=== PATIENT | male | born 1945 | race Caucasian/White ===

== ENCOUNTER 2020-10-21 12:02 | Inpatient (IN) | payer OTHER ==
[2020-10-21] MEDS ORDERED: ALBUTEROL SO4 2.5/IPRATROPIUM 0.5 INH SOL 3 ML VIAL.NEB. NEB ONE (12:21)
[2020-10-21] MEDS ORDERED: EPINEPHrine/PF 1 MG/1 ML (1:1,000) AMPULE ONE (12:42)
[2020-10-21] MEDS ORDERED: EPINEPHrine 1:1,000 1 MG/1 ML - 30ML VIAL (INJECTION) SQ ONE (12:44)
[2020-10-21] MEDS ORDERED: DEXAMETHASONE SOD PHOSPHATE 10 MG/1 ML VIAL IVPUSH ONE (12:44)
[2020-10-21] MEDS ORDERED: DEXAMETHASONE SOD PHOSPHATE 10 MG/1 ML VIAL ONE (12:47)
[2020-10-21] MEDS ORDERED: RACEPINEPHRINE IH SOL 2.25% 11.25 MG/0.5 ML VIAL IH ONE (12:54)
[2020-10-21] MEDS ORDERED: RACEPINEPHRINE IH SOL 2.25% 11.25 MG/0.5 ML VIAL NEB ONE (12:58)
[2020-10-21] MEDS: ALBUTEROL SO4 2.5/IPRATROPIUM 0.5 INH SOL 3 ML VIAL.NEB. NEB SCH ×2 (13:02→13:18)
[2020-10-21 13:04] LABS: BASO % 1.3 % (0-2.0); EOS % 2.4 % (0-4.5); HEMATOCRIT 43.5 % (35.4-49); HEMOGLOBIN 14.2 GM/dL (11.7-16.9); LYMPH % 23.3 % (8-40); MCH 25.9 pg (25.7-33.7); MCHC 32.6 g/dl (32.0-35.9); MEAN CELL VOLUME 79.7 fl (80-96); MONO % 8.1 % (3.8-10.2); NEUT % 64.9 % (42.8-82.8); PLATELET COUNT 374 K/MM3 (134-434); RBC 5.46 M/mm3 (4.00-5.60); RDW 13.8 % (11.9-15.9); WHITE BLOOD COUNT 12.3 K/mm3 (4.0-10.0)
[2020-10-21 13:11] LABS: INR 0.99 (0.83-1.09)
[2020-10-21 13:14] LABS: ACTIVATED PTT 34.9 SECONDS (25.2-36.5)
[2020-10-21 13:22] LABS: POTASSIUM 3.6 mmol/L (3.5-5.1)
[2020-10-21 13:24] LABS: CALCIUM 9.9 mg/dL (8.5-10.1)
[2020-10-21 13:25] LABS: ALBUMIN 3.9 g/dl (3.4-5.0); BLOOD UREA NITROGEN 25.7 mg/dL (7-18)
[2020-10-21 13:27] LABS: BILIRUBIN,DIRECT 0.2 mg/dL (0.0-0.2)
[2020-10-21 13:28] LABS: CREATININE 1.2 mg/dL (0.55-1.3)
[2020-10-21 13:29] LABS: BILIRUBIN,TOTAL 0.6 mg/dL (0.2-1)
[2020-10-21 13:30] LABS: TOT PROT 7.4 g/dl (6.4-8.2)
[2020-10-21] MEDS ORDERED: MAGNESIUM SULF 50% (8.12 MEQ/2 ML-1 GM VIAL) IVPB ONE (14:27)
[2020-10-21] MEDS ORDERED: MAGNESIUM SULFATE IN WATER 2 GM/50 ML IVPB IVPB ONE (14:45)
[2020-10-21 14:50] LABS: VENOUS BASE EXCESS 1.3 mmol/L (-2-2); VENOUS O2 SATURATION 98.5 % (70-80); VENOUS PCO2 44.5 mmHg (38-52); VENOUS PH 7.395 (7.310-7.410)
[2020-10-21] MEDS ORDERED: ALBUTEROL SO4 0.083% IH SOL 2.5 MG/3 ML VIAL.NEB. NEB SCH ×2 (16:30)
[2020-10-21] MEDS ORDERED: ALBUTEROL SO4 0.083% IH SOL 2.5 MG/3 ML VIAL.NEB. NEB ONE (16:39)
[2020-10-21] MEDS: ALBUTEROL SO4 0.083% IH SOL 2.5 MG/3 ML VIAL.NEB. NEB PRN ×3 (16:50→17:21)
[2020-10-21 17:18] LABS: EPI CELLS 13 /uL (0-25.1); HYALINE CASTS 1 /uL (0-3.1); PH,URINE 7.5 (5.0-8.0); URINE APPEARANCE CLEAR; URINE BACTERIA 57 /uL (0-1359); URINE BILIRUBIN NEGATIVE (NEGATIVE); URINE COLOR YELLOW; URINE GLUCOSE (UA) TRACE (NEGATIVE); URINE KETONE NEGATIVE (NEGATIVE); URINE LEUK ESTERASE NEGATIVE (NEGATIVE); URINE NITRITE NEGATIVE (NEGATIVE); URINE PROTEIN 3+ (NEGATIVE); URINE RBC 10 /uL (0-23.9); URINE UROBILINOGEN 0.2 mg/dL (0.2-1.0); URINE WBC 26 /uL (0-25.8)
[2020-10-21] MEDS ORDERED: SODIUM CHLORIDE 0.45%/POT 20 MEQ/1,000 ML INFUS.BAG IV SCH (17:45)
[2020-10-21] MEDS ORDERED: LACTATED RINGERS SOLUTION 1000 ML INFUS.BAG IV STA (18:22)
[2020-10-21] MEDS ORDERED: ATENOLOL 50 MG TABLET (FP) PO ONE (18:25)
[2020-10-21] MEDS ORDERED: ALBUTEROL SO4 HFA INHALER IH PRN (20:10)
[2020-10-21] MEDS ORDERED: HEPARIN NA (PORCINE) 5,000 UNITS/ML 1ML VIAL SQ SCH (22:00)
[2020-10-21] MEDS ORDERED: BUDESONIDE/FORMETEROL FUMARATE 160/4.5 mcg INHALER IH SCH (22:00)
[2020-10-21] MEDS: INSULIN (LEVEMIR) 100 UNITS/ML UNITS SQ SCH (22:33)
[2020-10-21] MEDS: CHLORHEXIDINE GLUCONATE 4% CLEANSER FOR DECOLONIZATION TP SCH (22:33)
[2020-10-21] MEDS: INSULIN SLIDING SCALE (NOVOLOG) 1 VIAL SQ SCH (22:33)
[2020-10-21] MEDS: MUPIROCIN 2% TOPICAL OINTMENT FOR DECOLONIZATION NS SCH (22:35)
[2020-10-21] MEDS ORDERED: hydrALAZINE HCL 20 MG/ML VIAL IVPUSH ONE (23:53)
[2020-10-22] MEDS ORDERED: LABETALOL HCL 5 MG/1 ML (100MG/20 ML VIAL) IVPUSH ONE ×2 (00:59→05:36)
[2020-10-22] MEDS ORDERED: hydrALAZINE HCL 25 MG TABLET (FP) PO ONE (03:33)
[2020-10-22 03:40] LABS: ALLENS TEST POSITIVE; ARTERIAL BLD GAS O2 SATURATION 98.7 mmHg (95-98); ARTERIAL BLOOD GAS PO2 137.4 mmHg (80-100); ARTERIAL BLOOD GAS pH 7.397 (7.350-7.450)
[2020-10-22] MEDS ORDERED: LORazepam 2 MG/ML SDV VIAL ONE (04:39)
[2020-10-22] MEDS ORDERED: HALOPERIDOL LACTATE 5 MG/ML ONE ×2 (04:40→06:06)
[2020-10-22] MEDS ORDERED: LORazepam 2 MG/ML SDV VIAL IVPUSH PRN (05:16)
[2020-10-22] MEDS ORDERED: LORazepam 2 MG/ML SDV VIAL IVPUSH ONE (06:12)
[2020-10-22] MEDS ORDERED: RACEPINEPHRINE IH SOL 2.25% 11.25 MG/0.5 ML VIAL NEB ONE (06:27)
[2020-10-22] MEDS ORDERED: EPINEPHrine 1:1,000 1 MG/1 ML - 30ML VIAL (INJECTION) SQ ONE (06:30)
[2020-10-22] MEDS ORDERED: RACEPINEPHRINE IH SOL 2.25% 11.25 MG/0.5 ML VIAL IH ONE (06:30)
[2020-10-22] MEDS ORDERED: HALOPERIDOL LACTATE 5 MG/ML IM ONE (06:32)
[2020-10-22] MEDS ORDERED: metFORMIN HCL 500 MG TABLET (FP) PO SCH (07:00)
[2020-10-22] MEDS ORDERED: SUCCINYLCHOLINE CHLORIDE 200 MG/10 ML VIAL IVPUSH ONE (07:15)
[2020-10-22] MEDS ORDERED: ROCURONIUM BROMIDE 50 MG/5 ML VIAL IV ONE (07:15)
[2020-10-22] MEDS ORDERED: RAPID SEQUENCE INTUBATION KIT NR ONE (07:18)
[2020-10-22] MEDS: INSULIN SLIDING SCALE (NOVOLOG) 1 VIAL SQ SCH ×3 (07:21→18:10)
[2020-10-22] MEDS ORDERED: DEXTROSE 50%-WATER 25 GM/50 ML DISP.SYRIN ONE (07:34)
[2020-10-22] MEDS: PROPOFOL 1,000,000 MCG/100 ML VIAL IVPUSH SCH ×2 (07:40→11:23)
[2020-10-22 07:54] LABS: BASO % 0.4 % (0-2.0); HEMATOCRIT 42.1 % (35.4-49); HEMOGLOBIN 13.5 GM/dL (11.7-16.9); MCH 25.9 pg (25.7-33.7); MCHC 32.2 g/dl (32.0-35.9); MEAN CELL VOLUME 80.4 fl (80-96); MEAN PLT VOLUME 9.7 fl (7.5-11.1); MONO % 9.6 % (3.8-10.2); PLATELET COUNT 331 K/MM3 (134-434); RBC 5.23 M/mm3 (4.00-5.60); RDW 13.8 % (11.9-15.9); WHITE BLOOD COUNT 12.6 K/mm3 (4.0-10.0)
[2020-10-22] MEDS ORDERED: FENTANYL IVPB 500 MCG/100 ML BAG IVPB ONE (08:04)
[2020-10-22 08:23] LABS: POTASSIUM 3.8 mmol/L (3.5-5.1)
[2020-10-22 08:27] LABS: ALBUMIN 3.7 g/dl (3.4-5.0); BLOOD UREA NITROGEN 30.2 mg/dL (7-18); CALCIUM 9.5 mg/dL (8.5-10.1); MAGNESIUM 2.3 mg/dL (1.8-2.4)
[2020-10-22] MEDS: FENTANYL D5W IVPB 1,000 MCG/200 ML BAG IVPB SCH (08:27)
[2020-10-22 08:30] LABS: CREATININE 1.3 mg/dL (0.55-1.3)
[2020-10-22] MEDS ORDERED: TAMSULOSIN HCL 0.4 MG CAP PO SCH (08:30)
[2020-10-22 08:31] LABS: PHOSPHOROUS 4.2 mg/dL (2.5-4.9)
[2020-10-22 08:32] LABS: BILIRUBIN,TOTAL 0.4 mg/dL (0.2-1); TOT PROT 7.1 g/dl (6.4-8.2)
[2020-10-22] MEDS: DEXAMETHASONE SOD PHOSPHATE 4 MG/1 ML VIAL IVPUSH SCH ×3 (09:25→21:12)
[2020-10-22] MEDS: LACTATED RINGERS SOLUTION 1,000 ML/1,000 ML INFUS.BAG IV SCH (09:25)
[2020-10-22] MEDS: MUPIROCIN 2% TOPICAL OINTMENT FOR DECOLONIZATION NS SCH ×2 (09:30→21:12)
[2020-10-22] MEDS: FAMOTIDINE 20 MG/50 ML IVPB 20 MG/50 ML MG IVPB SCH (09:30)
[2020-10-22 09:56] LABS: ARTERIAL BLD GAS O2 SATURATION 99.7 mmHg (95-98); ARTERIAL BLOOD GAS BASE EXCESS -0.6 mmol/L (-2-2); ARTERIAL BLOOD GAS PO2 342.2 mmHg (80-100); ARTERIAL BLOOD GAS pH 7.331 (7.350-7.450)
[2020-10-22 09:57] LABS: ALLENS TEST POSITIVE; VENT MODE A/C; VENT RATE 14
[2020-10-22] MEDS ORDERED: ATENOLOL 50 MG TABLET (FP) PO SCH (10:00)
[2020-10-22] MEDS ORDERED: DEXAMETHASONE SOD PHOSPHATE 4 MG/1 ML VIAL IVPUSH SCH (10:00)
[2020-10-22] MEDS ORDERED: ALBUTEROL SO4 2.5/IPRATROPIUM 0.5 INH SOL 3 ML VIAL.NEB. NEB PRN (10:01)
[2020-10-22] MEDS: HEPARIN NA (PORCINE) 5,000 UNITS/ML 1ML VIAL SQ SCH ×2 (15:00→21:12)
[2020-10-22] MEDS ORDERED: DEXTROSE 50%-WATER - 25 GM/50 ML VIAL IVPUSH ONE (15:34)
[2020-10-22 18:10] LABS: EPI CELLS >36 /uL (0-25.1); HYALINE CASTS 26 /uL (0-3.1); URINE APPEARANCE TURBID; URINE BACTERIA 22 /uL (0-1359); URINE BILIRUBIN NEGATIVE (NEGATIVE); URINE COLOR RED; URINE GLUCOSE (UA) TRACE (NEGATIVE); URINE KETONE 1+ (NEGATIVE); URINE LEUK ESTERASE 2+ (NEGATIVE); URINE NITRITE NEGATIVE (NEGATIVE); URINE PROTEIN 3+ (NEGATIVE); URINE RBC 21266 /uL (0-23.9); URINE UROBILINOGEN 0.2 mg/dL (0.2-1.0); URINE WBC 289 /uL (0-25.8)
[2020-10-22] MEDS ORDERED: FENTANYL NS IVPB 500 MCG/100 ML BAG IVPB ONE (18:55)
[2020-10-22] MEDS ORDERED: PT OWN MED DRAWER 7, Y5N ONE (20:30)
[2020-10-22] MEDS: CHLORHEXIDINE GLUCONATE 4% CLEANSER FOR DECOLONIZATION TP SCH (22:40)
[2020-10-23] MEDS: INSULIN (LEVEMIR) 100 UNITS/ML UNITS SQ SCH ×2 (00:47→23:20)
[2020-10-23] MEDS: INSULIN SLIDING SCALE (NOVOLOG) 1 VIAL SQ SCH ×5 (00:47→23:20)
[2020-10-23] MEDS ORDERED: FENTANYL IVPB 500 MCG/100 ML BAG IVPB ONE (01:08)
[2020-10-23] MEDS ORDERED: PROPOFOL 1,000,000 MCG/100 ML VIAL ONE (01:08)
[2020-10-23] MEDS: DEXAMETHASONE SOD PHOSPHATE 4 MG/1 ML VIAL IVPUSH SCH ×4 (03:09→23:19)
[2020-10-23] MEDS: HEPARIN NA (PORCINE) 5,000 UNITS/ML 1ML VIAL SQ SCH ×3 (06:00→23:19)
[2020-10-23 07:24] LABS: HEMATOCRIT 34.8 % (35.4-49); HEMOGLOBIN 11.5 GM/dL (11.7-16.9); MCH 26.4 pg (25.7-33.7); MCHC 33.1 g/dl (32.0-35.9); MEAN CELL VOLUME 79.7 fl (80-96); MEAN PLT VOLUME 9.4 fl (7.5-11.1); PLATELET COUNT 268 K/MM3 (134-434); RBC 4.36 M/mm3 (4.00-5.60); RDW 13.7 % (11.9-15.9); WHITE BLOOD COUNT 8.3 K/mm3 (4.0-10.0)
[2020-10-23 07:44] LABS: ALBUMIN 2.7 g/dl (3.4-5.0); CALCIUM 8.2 mg/dL (8.5-10.1)
[2020-10-23 07:45] LABS: BLOOD UREA NITROGEN 37.2 mg/dL (7-18); MAGNESIUM 2.3 mg/dL (1.8-2.4)
[2020-10-23 07:48] LABS: CREATININE 1.3 mg/dL (0.55-1.3); PHOSPHOROUS 5.1 mg/dL (2.5-4.9)
[2020-10-23 07:49] LABS: BILIRUBIN,TOTAL 0.6 mg/dL (0.2-1); TOT PROT 5.1 g/dl (6.4-8.2)
[2020-10-23] MEDS: LACTATED RINGERS SOLUTION 1,000 ML/1,000 ML INFUS.BAG IV SCH (09:56)
[2020-10-23] MEDS: MUPIROCIN 2% TOPICAL OINTMENT FOR DECOLONIZATION NS SCH ×2 (09:57→22:36)
[2020-10-23] MEDS: FAMOTIDINE 20 MG/50 ML IVPB 20 MG/50 ML MG IVPB SCH (09:57)
[2020-10-23] MEDS: FENTANYL D5W IVPB 1,000 MCG/200 ML BAG IVPB SCH ×3 (10:00→18:01)
[2020-10-23 12:40] LABS: POTASSIUM 3.6 mmol/L (3.5-5.1)
[2020-10-23] MEDS: PROPOFOL 1,000,000 MCG/100 ML VIAL IVPUSH SCH ×2 (13:06→18:01)
[2020-10-23] MEDS ORDERED: FENTANYL NS IVPB 500 MCG/100 ML BAG IVPB ONE (17:55)
[2020-10-23] MEDS: CHLORHEXIDINE GLUCONATE 4% CLEANSER FOR DECOLONIZATION TP SCH (22:36)
[2020-10-24] MEDS ORDERED: FENTANYL NS IVPB 500 MCG/100 ML BAG IVPB ONE ×3 (00:38→17:31)
[2020-10-24] MEDS ORDERED: PROPOFOL 1,000,000 MCG/100 ML VIAL ONE (00:39)
[2020-10-24] MEDS: DEXAMETHASONE SOD PHOSPHATE 4 MG/1 ML VIAL IVPUSH SCH ×4 (02:08→20:26)
[2020-10-24] MEDS ORDERED: SODIUM CHLORIDE 1,000 ML IV SCH ×2 (04:30→22:34)
[2020-10-24] MEDS: INSULIN SLIDING SCALE (NOVOLOG) 1 VIAL SQ SCH ×4 (06:27→22:08)
[2020-10-24] MEDS: HEPARIN NA (PORCINE) 5,000 UNITS/ML 1ML VIAL SQ SCH ×3 (06:27→21:14)
[2020-10-24 06:48] LABS: HEMOGLOBIN 11.4 GM/dL (11.7-16.9); MCH 25.9 pg (25.7-33.7); MCHC 32.5 g/dl (32.0-35.9); MEAN CELL VOLUME 79.8 fl (80-96); MEAN PLT VOLUME 9.5 fl (7.5-11.1); PLATELET COUNT 258 K/MM3 (134-434); RBC 4.38 M/mm3 (4.00-5.60); RDW 13.9 % (11.9-15.9); WHITE BLOOD COUNT 13.7 K/mm3 (4.0-10.0)
[2020-10-24 07:10] LABS: POTASSIUM 3.8 mmol/L (3.5-5.1)
[2020-10-24 07:14] LABS: BLOOD UREA NITROGEN 38.5 mg/dL (7-18); CALCIUM 8.3 mg/dL (8.5-10.1); MAGNESIUM 2.6 mg/dL (1.8-2.4)
[2020-10-24 07:17] LABS: CREATININE 1.2 mg/dL (0.55-1.3)
[2020-10-24 07:18] LABS: PHOSPHOROUS 4.8 mg/dL (2.5-4.9)
[2020-10-24] MEDS: PROPOFOL 1,000,000 MCG/100 ML VIAL IVPUSH SCH (08:36)
[2020-10-24] MEDS: FENTANYL D5W IVPB 1,000 MCG/200 ML BAG IVPB SCH (09:13)
[2020-10-24] MEDS: MUPIROCIN 2% TOPICAL OINTMENT FOR DECOLONIZATION NS SCH ×2 (09:13→21:14)
[2020-10-24] MEDS: FAMOTIDINE 20 MG/50 ML IVPB 20 MG/50 ML MG IVPB SCH (09:13)
[2020-10-24] MEDS: CHLORHEXIDINE GLUCONATE 4% CLEANSER FOR DECOLONIZATION TP SCH (21:14)
[2020-10-24] MEDS: INSULIN (LEVEMIR) 100 UNITS/ML UNITS SQ SCH (22:08)
[2020-10-25] MEDS ORDERED: FENTANYL IVPB 500 MCG/100 ML BAG IVPB ONE ×2 (01:33→17:39)
[2020-10-25] MEDS: FENTANYL D5W IVPB 1,000 MCG/200 ML BAG IVPB SCH ×2 (01:39→18:01)
[2020-10-25] MEDS: DEXAMETHASONE SOD PHOSPHATE 4 MG/1 ML VIAL IVPUSH SCH ×4 (02:49→20:26)
[2020-10-25] MEDS: PROPOFOL 1,000,000 MCG/100 ML VIAL IVPUSH SCH ×2 (04:00)
[2020-10-25] MEDS: HEPARIN NA (PORCINE) 5,000 UNITS/ML 1ML VIAL SQ SCH ×3 (05:22→21:30)
[2020-10-25] MEDS: INSULIN SLIDING SCALE (NOVOLOG) 1 VIAL SQ SCH ×4 (06:19→21:31)
[2020-10-25 07:02] LABS: BASO % 0.3 % (0-2.0); HEMOGLOBIN 11.7 GM/dL (11.7-16.9); LYMPH % 5.1 % (8-40); MCH 26.1 pg (25.7-33.7); MCHC 32.5 g/dl (32.0-35.9); MEAN CELL VOLUME 80.2 fl (80-96); MEAN PLT VOLUME 9.6 fl (7.5-11.1); MONO % 9.7 % (3.8-10.2); NEUT % 84.9 % (42.8-82.8); PLATELET COUNT 246 K/MM3 (134-434); RBC 4.49 M/mm3 (4.00-5.60); RDW 13.9 % (11.9-15.9)
[2020-10-25 07:24] LABS: POTASSIUM 3.9 mmol/L (3.5-5.1)
[2020-10-25 07:30] LABS: CALCIUM 7.9 mg/dL (8.5-10.1)
[2020-10-25 07:31] LABS: ALBUMIN 2.2 g/dl (3.4-5.0); MAGNESIUM 2.6 mg/dL (1.8-2.4)
[2020-10-25 07:34] LABS: CREATININE 1.1 mg/dL (0.55-1.3); PHOSPHOROUS 3.2 mg/dL (2.5-4.9)
[2020-10-25 07:35] LABS: BILIRUBIN,TOTAL 0.4 mg/dL (0.2-1); TOT PROT 4.9 g/dl (6.4-8.2)
[2020-10-25] MEDS ORDERED: FENTANYL NS IVPB 500 MCG/100 ML BAG IVPB ONE ×2 (07:43→17:11)
[2020-10-25] MEDS: FAMOTIDINE 20 MG/50 ML IVPB 20 MG/50 ML MG IVPB SCH (09:39)
[2020-10-25] MEDS: MUPIROCIN 2% TOPICAL OINTMENT FOR DECOLONIZATION NS SCH ×2 (10:29→21:30)
[2020-10-25] MEDS ORDERED: DEXAMETHASONE SOD PHOSPHATE 10 MG/1 ML VIAL ONE (11:30)
[2020-10-25] MEDS ORDERED: RACEPINEPHRINE IH SOL 2.25% 11.25 MG/0.5 ML VIAL NEB ONE (11:32)
[2020-10-25] MEDS ORDERED: SUCCINYLCHOLINE CHLORIDE 200 MG/10 ML SYRINGE ONE (11:50)
[2020-10-25] MEDS ORDERED: DEXTROSE 5%-WATER 100 ML IVPB ONE ×3 (14:01→20:20)
[2020-10-25] MEDS ORDERED: PIPERACILLIN/TAZOBACTAM 4.5 GM VIAL IVPB ONE ×3 (14:01→20:20)
[2020-10-25] MEDS: PIPERACILLIN/TAZOB 4.5 GM 4.5 GM in DEXTROSE 5%-WATER 100 ML IVPB SCH ×3 (14:05→20:26)
[2020-10-25] MEDS: AMINO ACIDS/PROTEIN HYDROLYS 30 ML LIQUID.PKT PO SCH (18:02)
[2020-10-25] MEDS: CHLORHEXIDINE GLUCONATE 4% CLEANSER FOR DECOLONIZATION TP SCH (21:30)
[2020-10-25] MEDS: INSULIN (LEVEMIR) 100 UNITS/ML UNITS SQ SCH (21:31)
[2020-10-26] MEDS ORDERED: FENTANYL IVPB 500 MCG/100 ML BAG IVPB ONE ×2 (00:06→15:47)
[2020-10-26] MEDS ORDERED: ENALAPRILAT DIHYDRATE 1.25 MG/1 ML VIAL IVPB ONE ×2 (01:09→06:05)
[2020-10-26] MEDS ORDERED: PIPERACILLIN/TAZOBACTAM 4.5 GM VIAL IVPB ONE ×5 (01:20→20:09)
[2020-10-26] MEDS ORDERED: DEXTROSE 5%-WATER 100 ML IVPB ONE ×4 (01:21→20:09)
[2020-10-26] MEDS: PIPERACILLIN/TAZOB 4.5 GM 4.5 GM in DEXTROSE 5%-WATER 100 ML IVPB SCH ×4 (03:06→20:19)
[2020-10-26] MEDS: DEXAMETHASONE SOD PHOSPHATE 4 MG/1 ML VIAL IVPUSH SCH ×4 (03:10→20:20)
[2020-10-26] MEDS: FENTANYL D5W IVPB 1,000 MCG/200 ML BAG IVPB SCH ×2 (04:00→15:51)
[2020-10-26] MEDS: PROPOFOL 1,000,000 MCG/100 ML VIAL IVPUSH SCH ×2 (04:00→13:28)
[2020-10-26] MEDS: HEPARIN NA (PORCINE) 5,000 UNITS/ML 1ML VIAL SQ SCH ×3 (06:21→21:37)
[2020-10-26] MEDS: INSULIN SLIDING SCALE (NOVOLOG) 1 VIAL SQ SCH ×4 (06:22→22:06)
[2020-10-26] MEDS ORDERED: ACETAMINOPHEN 1000 MG/100 ML VIAL (NON FORMULARY) IVPB ONE (06:44)
[2020-10-26 07:09] LABS: BASO % 0.1 % (0-2.0); EOS % 0.1 % (0-4.5); HEMATOCRIT 37.5 % (35.4-49); HEMOGLOBIN 12.2 GM/dL (11.7-16.9); MCH 26.2 pg (25.7-33.7); MCHC 32.5 g/dl (32.0-35.9); MEAN CELL VOLUME 80.5 fl (80-96); MEAN PLT VOLUME 9.8 fl (7.5-11.1); MONO % 5.3 % (3.8-10.2); NEUT % 87.5 % (42.8-82.8); PLATELET COUNT 245 K/MM3 (134-434); RBC 4.66 M/mm3 (4.00-5.60); RDW 13.9 % (11.9-15.9)
[2020-10-26 07:23] LABS: POTASSIUM 3.9 mmol/L (3.5-5.1)
[2020-10-26 07:27] LABS: CALCIUM 8.4 mg/dL (8.5-10.1)
[2020-10-26 07:28] LABS: ALBUMIN 2.1 g/dl (3.4-5.0); BLOOD UREA NITROGEN 35.3 mg/dL (7-18)
[2020-10-26 07:31] LABS: CREATININE 1.2 mg/dL (0.55-1.3); PHOSPHOROUS 3.7 mg/dL (2.5-4.9)
[2020-10-26 07:33] LABS: BILIRUBIN,TOTAL 0.4 mg/dL (0.2-1); TOT PROT 5.2 g/dl (6.4-8.2)
[2020-10-26] MEDS: MUPIROCIN 2% TOPICAL OINTMENT FOR DECOLONIZATION NS SCH (09:35)
[2020-10-26] MEDS: FAMOTIDINE 20 MG/50 ML IVPB 20 MG/50 ML MG IVPB SCH (09:36)
[2020-10-26] MEDS: AMINO ACIDS/PROTEIN HYDROLYS 30 ML LIQUID.PKT PO SCH ×2 (09:36→17:38)
[2020-10-26 10:04] LABS: ANISOCYTOSIS 0; MACROCYTOSIS 0; PLATELET ESTIMATE NORMAL
[2020-10-26] MEDS ORDERED: DEXTROSE 5%-LACTATED RINGERS 1,000 ML IV SCH (14:30)
[2020-10-26] MEDS: SODIUM CHLORIDE 0.45% 1,000 ML IV SCH (15:15)
[2020-10-26] MEDS ORDERED: ENALAPRILAT DIHYDRATE 2.5 MG/2 ML VIAL IVPB ONE ×2 (16:18→16:22)
[2020-10-26] MEDS: ATENOLOL 50 MG TABLET (FP) PO SCH (17:37)
[2020-10-26] MEDS: TAMSULOSIN HCL 0.4 MG CAP PO SCH (17:38)
[2020-10-26] MEDS: hydrALAZINE HCL 25 MG TABLET (FP) PO SCH ×2 (17:38→21:36)
[2020-10-26] MEDS: CHLORHEXIDINE GLUCONATE 4% CLEANSER FOR DECOLONIZATION TP SCH (22:08)
[2020-10-27] MEDS ORDERED: FENTANYL IVPB 500 MCG/100 ML BAG IVPB ONE ×2 (01:40→21:35)
[2020-10-27] MEDS ORDERED: PIPERACILLIN/TAZOBACTAM 4.5 GM VIAL IVPB ONE ×4 (01:41→21:37)
[2020-10-27] MEDS ORDERED: DEXTROSE 5%-WATER 100 ML IVPB ONE ×4 (01:41→21:37)
[2020-10-27] MEDS: FENTANYL D5W IVPB 1,000 MCG/200 ML BAG IVPB SCH ×2 (01:51→10:13)
[2020-10-27] MEDS: PROPOFOL 1,000,000 MCG/100 ML VIAL IVPUSH SCH ×3 (01:51→21:50)
[2020-10-27] MEDS: DEXAMETHASONE SOD PHOSPHATE 4 MG/1 ML VIAL IVPUSH SCH ×4 (02:25→21:46)
[2020-10-27] MEDS: PIPERACILLIN/TAZOB 4.5 GM 4.5 GM in DEXTROSE 5%-WATER 100 ML IVPB SCH ×4 (02:45→21:47)
[2020-10-27] MEDS: hydrALAZINE HCL 25 MG TABLET (FP) PO SCH ×3 (05:28→21:49)
[2020-10-27] MEDS: HEPARIN NA (PORCINE) 5,000 UNITS/ML 1ML VIAL SQ SCH ×3 (05:28→21:49)
[2020-10-27] MEDS: INSULIN SLIDING SCALE (NOVOLOG) 1 VIAL SQ SCH ×4 (06:27→22:01)
[2020-10-27] MEDS: TAMSULOSIN HCL 0.4 MG CAP PO SCH (09:24)
[2020-10-27] MEDS: AMINO ACIDS/PROTEIN HYDROLYS 30 ML LIQUID.PKT PO SCH ×2 (09:44→16:41)
[2020-10-27] MEDS: FAMOTIDINE 20 MG/50 ML IVPB 20 MG/50 ML MG IVPB SCH ×2 (09:47→21:50)
[2020-10-27] MEDS: ATENOLOL 50 MG TABLET (FP) PO SCH (09:48)
[2020-10-27] MEDS ORDERED: FENTANYL NS IVPB 500 MCG/100 ML BAG IVPB ONE (10:12)
[2020-10-27 11:29] LABS: BASO % 0.5 % (0-2.0); HEMATOCRIT 38.9 % (35.4-49); HEMOGLOBIN 12.3 GM/dL (11.7-16.9); LYMPH % 8.3 % (8-40); MCH 25.7 pg (25.7-33.7); MCHC 31.6 g/dl (32.0-35.9); MEAN CELL VOLUME 81.3 fl (80-96); MEAN PLT VOLUME 9.5 fl (7.5-11.1); MONO % 6.7 % (3.8-10.2); NEUT % 84.5 % (42.8-82.8); PLATELET COUNT 252 K/MM3 (134-434); RBC 4.79 M/mm3 (4.00-5.60); RDW 13.8 % (11.9-15.9); WHITE BLOOD COUNT 13.7 K/mm3 (4.0-10.0)
[2020-10-27 11:44] LABS: POTASSIUM 3.8 mmol/L (3.5-5.1)
[2020-10-27 11:50] LABS: BLOOD UREA NITROGEN 39.6 mg/dL (7-18); CALCIUM 8.1 mg/dL (8.5-10.1)
[2020-10-27 11:51] LABS: MAGNESIUM 2.6 mg/dL (1.8-2.4)
[2020-10-27 11:53] LABS: CREATININE 1.2 mg/dL (0.55-1.3)
[2020-10-27 11:54] LABS: PHOSPHOROUS 4.2 mg/dL (2.5-4.9)
[2020-10-27 11:55] LABS: TOT PROT 5.2 g/dl (6.4-8.2)
[2020-10-27 12:01] LABS: BILIRUBIN,TOTAL 0.5 mg/dL (0.2-1)
[2020-10-27] MEDS: SODIUM CHLORIDE 0.45% 1,000 ML IV SCH (16:37)
[2020-10-27] MEDS: CHLORHEXIDINE GLUCONATE 4% CLEANSER FOR DECOLONIZATION TP SCH (21:49)
[2020-10-27] MEDS: INSULIN (LEVEMIR) 100 UNITS/ML UNITS SQ SCH (22:02)
[2020-10-28] MEDS ORDERED: PIPERACILLIN/TAZOBACTAM 4.5 GM VIAL IVPB ONE ×4 (01:01→21:58)
[2020-10-28] MEDS ORDERED: DEXTROSE 5%-WATER 100 ML IVPB ONE ×4 (01:02→21:58)
[2020-10-28] MEDS: DEXAMETHASONE SOD PHOSPHATE 4 MG/1 ML VIAL IVPUSH SCH ×4 (02:00→21:59)
[2020-10-28] MEDS: PIPERACILLIN/TAZOB 4.5 GM 4.5 GM in DEXTROSE 5%-WATER 100 ML IVPB SCH ×4 (02:00→21:59)
[2020-10-28] MEDS: PROPOFOL 1,000,000 MCG/100 ML VIAL IVPUSH SCH ×3 (02:00→22:00)
[2020-10-28] MEDS ORDERED: FENTANYL IVPB 500 MCG/100 ML BAG IVPB ONE (04:57)
[2020-10-28] MEDS: hydrALAZINE HCL 25 MG TABLET (FP) PO SCH (05:04)
[2020-10-28] MEDS: HEPARIN NA (PORCINE) 5,000 UNITS/ML 1ML VIAL SQ SCH ×3 (05:04→21:59)
[2020-10-28] MEDS: INSULIN SLIDING SCALE (NOVOLOG) 1 VIAL SQ SCH ×4 (06:38→22:15)
[2020-10-28 07:36] LABS: BASO % 0.3 % (0-2.0); HEMATOCRIT 38.3 % (35.4-49); HEMOGLOBIN 12.3 GM/dL (11.7-16.9); LYMPH % 5.2 % (8-40); MCH 25.8 pg (25.7-33.7); MEAN CELL VOLUME 80.8 fl (80-96); MEAN PLT VOLUME 9.5 fl (7.5-11.1); MONO % 5.4 % (3.8-10.2); NEUT % 89.1 % (42.8-82.8); PLATELET COUNT 255 K/MM3 (134-434); RBC 4.74 M/mm3 (4.00-5.60); RDW 14.3 % (11.9-15.9); WHITE BLOOD COUNT 11.5 K/mm3 (4.0-10.0)
[2020-10-28 08:04] LABS: ALBUMIN 1.9 g/dl (3.4-5.0); BLOOD UREA NITROGEN 49.7 mg/dL (7-18); CALCIUM 7.7 mg/dL (8.5-10.1)
[2020-10-28 08:05] LABS: MAGNESIUM 2.5 mg/dL (1.8-2.4)
[2020-10-28 08:07] LABS: CREATININE 1.2 mg/dL (0.55-1.3); PHOSPHOROUS 3.8 mg/dL (2.5-4.9)
[2020-10-28 08:09] LABS: BILIRUBIN,TOTAL 0.4 mg/dL (0.2-1); TOT PROT 4.9 g/dl (6.4-8.2)
[2020-10-28] MEDS ORDERED: PT OWN MED DRAWER 7, Y5N ONE (09:33)
[2020-10-28] MEDS: TAMSULOSIN HCL 0.4 MG CAP PO SCH (10:08)
[2020-10-28] MEDS: AMINO ACIDS/PROTEIN HYDROLYS 30 ML LIQUID.PKT PO SCH ×2 (10:08→17:57)
[2020-10-28] MEDS: ATENOLOL 50 MG TABLET (FP) PO SCH (10:09)
[2020-10-28] MEDS: FAMOTIDINE 20 MG/50 ML IVPB 20 MG/50 ML MG IVPB SCH ×2 (10:09→22:00)
[2020-10-28] MEDS ORDERED: DEXTROSE 5%-WATER - 1,000 ML IV SCH (11:00)
[2020-10-28 11:16] LABS: ANISOCYTOSIS 0; MACROCYTOSIS 0; PLATELET ESTIMATE NORMAL
[2020-10-28] MEDS: hydrALAZINE HCL 50 MG TABLET (FP) PO SCH ×2 (15:35→21:59)
[2020-10-28] MEDS ORDERED: fentaNYL CITRATE 250 MCG/5 ML VIAL ONE ×2 (17:23→23:36)
[2020-10-28] MEDS: CHLORHEXIDINE GLUCONATE 4% CLEANSER FOR DECOLONIZATION TP SCH (22:00)
[2020-10-28] MEDS: INSULIN (LEVEMIR) 100 UNITS/ML UNITS SQ SCH (22:34)
[2020-10-28] MEDS: FENTANYL D5W IVPB 1,000 MCG/200 ML BAG IVPB SCH ×2 (23:37)
[2020-10-29] MEDS: PIPERACILLIN/TAZOB 4.5 GM 4.5 GM in DEXTROSE 5%-WATER 100 ML IVPB SCH ×4 (02:26→21:36)
[2020-10-29] MEDS: DEXAMETHASONE SOD PHOSPHATE 4 MG/1 ML VIAL IVPUSH SCH ×4 (02:26→21:36)
[2020-10-29] MEDS ORDERED: PIPERACILLIN/TAZOBACTAM 4.5 GM VIAL IVPB ONE ×4 (02:26→21:34)
[2020-10-29] MEDS: PROPOFOL 1,000,000 MCG/100 ML VIAL IVPUSH SCH ×4 (02:26→19:30)
[2020-10-29] MEDS ORDERED: DEXTROSE 5%-WATER 100 ML IVPB ONE ×4 (02:26→21:35)
[2020-10-29] MEDS: hydrALAZINE HCL 50 MG TABLET (FP) PO SCH ×3 (05:00→21:37)
[2020-10-29] MEDS: HEPARIN NA (PORCINE) 5,000 UNITS/ML 1ML VIAL SQ SCH (06:09)
[2020-10-29] MEDS: INSULIN SLIDING SCALE (NOVOLOG) 1 VIAL SQ SCH ×4 (06:14→21:34)
[2020-10-29 06:35] LABS: BASO % 0.4 % (0-2.0); EOS % 0.1 % (0-4.5); HEMATOCRIT 37.4 % (35.4-49); LYMPH % 6.8 % (8-40); MCH 25.8 pg (25.7-33.7); MEAN CELL VOLUME 80.5 fl (80-96); MEAN PLT VOLUME 9.1 fl (7.5-11.1); MONO % 6.6 % (3.8-10.2); NEUT % 86.1 % (42.8-82.8); PLATELET COUNT 231 K/MM3 (134-434); RBC 4.65 M/mm3 (4.00-5.60); RDW 14.2 % (11.9-15.9); WHITE BLOOD COUNT 12.5 K/mm3 (4.0-10.0)
[2020-10-29 06:56] LABS: CALCIUM 8.1 mg/dL (8.5-10.1)
[2020-10-29 06:57] LABS: ALBUMIN 1.8 g/dl (3.4-5.0); BLOOD UREA NITROGEN 44.6 mg/dL (7-18); MAGNESIUM 2.8 mg/dL (1.8-2.4)
[2020-10-29 06:59] LABS: CREATININE 1.2 mg/dL (0.55-1.3)
[2020-10-29 07:00] LABS: PHOSPHOROUS 3.9 mg/dL (2.5-4.9)
[2020-10-29 07:01] LABS: BILIRUBIN,TOTAL 0.5 mg/dL (0.2-1); TOT PROT 4.7 g/dl (6.4-8.2)
[2020-10-29] MEDS: TAMSULOSIN HCL 0.4 MG CAP PO SCH (08:00)
[2020-10-29] MEDS: AMINO ACIDS/PROTEIN HYDROLYS 30 ML LIQUID.PKT PO SCH ×2 (08:00→16:47)
[2020-10-29] MEDS: FENTANYL IVPB 500 MCG/100 ML BAG IVPB SCH ×2 (08:30→20:00)
[2020-10-29] MEDS ORDERED: fentaNYL CITRATE 250 MCG/5 ML VIAL ONE (08:38)
[2020-10-29] MEDS: FAMOTIDINE 20 MG/50 ML IVPB 20 MG/50 ML MG IVPB SCH ×2 (09:46→21:37)
[2020-10-29] MEDS: ATENOLOL 50 MG TABLET (FP) PO SCH (09:46)
[2020-10-29] MEDS: INSULIN (LEVEMIR) 100 UNITS/ML UNITS SQ SCH (21:34)
[2020-10-29] MEDS: CHLORHEXIDINE GLUCONATE 4% CLEANSER FOR DECOLONIZATION TP SCH (21:37)
[2020-10-30] MEDS ORDERED: FENTANYL IVPB 500 MCG/100 ML BAG IVPB ONE (00:55)
[2020-10-30] MEDS: FENTANYL IVPB 500 MCG/100 ML BAG IVPB SCH ×4 (01:45→21:24)
[2020-10-30] MEDS: PROPOFOL 1,000,000 MCG/100 ML VIAL IVPUSH SCH ×5 (01:45→21:24)
[2020-10-30] MEDS: DEXAMETHASONE SOD PHOSPHATE 4 MG/1 ML VIAL IVPUSH SCH ×4 (02:01→21:23)
[2020-10-30] MEDS: PIPERACILLIN/TAZOB 4.5 GM 4.5 GM in DEXTROSE 5%-WATER 100 ML IVPB SCH ×4 (02:02→21:23)
[2020-10-30] MEDS: hydrALAZINE HCL 50 MG TABLET (FP) PO SCH ×3 (06:09→21:24)
[2020-10-30] MEDS ORDERED: DEXTROSE 5%-WATER 100 ML IVPB ONE ×4 (06:24→20:53)
[2020-10-30] MEDS ORDERED: PIPERACILLIN/TAZOBACTAM 4.5 GM VIAL IVPB ONE ×4 (06:24→20:53)
[2020-10-30] MEDS: INSULIN SLIDING SCALE (NOVOLOG) 1 VIAL SQ SCH ×4 (06:26→21:34)
[2020-10-30 07:20] LABS: BASO % 0.3 % (0-2.0); EOS % 0.1 % (0-4.5); HEMATOCRIT 37.8 % (35.4-49); HEMOGLOBIN 11.9 GM/dL (11.7-16.9); LYMPH % 4.7 % (8-40); MCH 25.7 pg (25.7-33.7); MCHC 31.3 g/dl (32.0-35.9); MEAN CELL VOLUME 82.1 fl (80-96); MEAN PLT VOLUME 9.7 fl (7.5-11.1); MONO % 3.4 % (3.8-10.2); NEUT % 91.5 % (42.8-82.8); PLATELET COUNT 224 K/MM3 (134-434); RBC 4.61 M/mm3 (4.00-5.60); RDW 14.4 % (11.9-15.9); WHITE BLOOD COUNT 12.5 K/mm3 (4.0-10.0)
[2020-10-30 07:38] LABS: POTASSIUM 4.4 mmol/L (3.5-5.1)
[2020-10-30 07:44] LABS: CALCIUM 7.6 mg/dL (8.5-10.1)
[2020-10-30 07:45] LABS: ALBUMIN 1.9 g/dl (3.4-5.0); BLOOD UREA NITROGEN 50.2 mg/dL (7-18)
[2020-10-30 07:46] LABS: CREATININE 1.4 mg/dL (0.55-1.3)
[2020-10-30 07:48] LABS: BILIRUBIN,TOTAL 0.9 mg/dL (0.2-1); TOT PROT 4.8 g/dl (6.4-8.2)
[2020-10-30] MEDS ORDERED: FENTANYL NS IVPB 500 MCG/100 ML BAG IVPB ONE (07:52)
[2020-10-30] MEDS ORDERED: MIDAZOLAM 100 MG/100 ML MG IVPB ONE (08:06)
[2020-10-30] MEDS: AMINO ACIDS/PROTEIN HYDROLYS 30 ML LIQUID.PKT PO SCH ×2 (09:20→16:50)
[2020-10-30] MEDS: TAMSULOSIN HCL 0.4 MG CAP PO SCH (09:21)
[2020-10-30] MEDS: ATENOLOL 50 MG TABLET (FP) PO SCH (10:42)
[2020-10-30] MEDS: FAMOTIDINE 20 MG/50 ML IVPB 20 MG/50 ML MG IVPB SCH ×2 (10:42→21:24)
[2020-10-30] MEDS ORDERED: INSULIN (NOVOLOG) ASPART 100 UNITS/ML 10ML VIAL SQ ONE (11:09)
[2020-10-30] MEDS: CHLORHEXIDINE GLUCONATE 4% CLEANSER FOR DECOLONIZATION TP SCH (21:23)
[2020-10-30] MEDS: INSULIN (LEVEMIR) 100 UNITS/ML UNITS SQ SCH (21:33)
[2020-10-31] MEDS ORDERED: PIPERACILLIN/TAZOBACTAM 4.5 GM VIAL IVPB ONE ×4 (01:17→20:16)
[2020-10-31] MEDS ORDERED: RAPID SEQUENCE INTUBATION KIT NR ONE (01:17)
[2020-10-31] MEDS ORDERED: DEXTROSE 5%-WATER 100 ML IVPB ONE ×4 (01:17→20:16)
[2020-10-31] MEDS: PIPERACILLIN/TAZOB 4.5 GM 4.5 GM in DEXTROSE 5%-WATER 100 ML IVPB SCH ×4 (02:00→20:54)
[2020-10-31] MEDS: DEXAMETHASONE SOD PHOSPHATE 4 MG/1 ML VIAL IVPUSH SCH ×4 (02:00→20:54)
[2020-10-31] MEDS ORDERED: fentaNYL CITRATE 250 MCG/5 ML VIAL ONE (06:06)
[2020-10-31] MEDS: hydrALAZINE HCL 50 MG TABLET (FP) PO SCH ×3 (06:14→21:10)
[2020-10-31] MEDS: INSULIN SLIDING SCALE (NOVOLOG) 1 VIAL SQ SCH ×3 (06:15→16:45)
[2020-10-31] MEDS: PROPOFOL 1,000,000 MCG/100 ML VIAL IVPUSH SCH ×3 (06:21→15:01)
[2020-10-31] MEDS: FENTANYL IVPB 500 MCG/100 ML BAG IVPB SCH ×4 (06:22→13:32)
[2020-10-31 06:25] LABS: ARTERIAL BLD GAS O2 SATURATION 97.9 mmHg (95-98); ARTERIAL BLOOD GAS BASE EXCESS -0.6 mmol/L (-2-2); ARTERIAL BLOOD GAS PO2 108.7 mmHg (80-100); ARTERIAL BLOOD GAS pH 7.381 (7.350-7.450)
[2020-10-31 06:26] LABS: ALLENS TEST POSITIVE
[2020-10-31 06:27] LABS: VENT MODE A/C; VENT RATE 12
[2020-10-31] MEDS: TAMSULOSIN HCL 0.4 MG CAP PO SCH (09:00)
[2020-10-31] MEDS: AMINO ACIDS/PROTEIN HYDROLYS 30 ML LIQUID.PKT PO SCH ×2 (09:00→16:48)
[2020-10-31] MEDS: ATENOLOL 50 MG TABLET (FP) PO SCH (10:12)
[2020-10-31] MEDS: FAMOTIDINE 20 MG/50 ML IVPB 20 MG/50 ML MG IVPB SCH ×2 (10:12→21:11)
[2020-10-31 12:36] LABS: BASO % 0.2 % (0-2.0); EOS % 0.1 % (0-4.5); HEMATOCRIT 35.8 % (35.4-49); HEMOGLOBIN 11.5 GM/dL (11.7-16.9); LYMPH % 6.2 % (8-40); MCH 26.5 pg (25.7-33.7); MCHC 32.2 g/dl (32.0-35.9); MEAN CELL VOLUME 82.3 fl (80-96); MONO % 6.6 % (3.8-10.2); NEUT % 86.9 % (42.8-82.8); RBC 4.35 M/mm3 (4.00-5.60); RDW 14.3 % (11.9-15.9); WHITE BLOOD COUNT 13.3 K/mm3 (4.0-10.0)
[2020-10-31 12:54] LABS: POTASSIUM 3.9 mmol/L (3.5-5.1)
[2020-10-31 12:56] LABS: ALBUMIN 1.7 g/dl (3.4-5.0)
[2020-10-31 12:57] LABS: MAGNESIUM 2.9 mg/dL (1.8-2.4)
[2020-10-31 13:00] LABS: CREATININE 1.2 mg/dL (0.55-1.3); PHOSPHOROUS 3.5 mg/dL (2.5-4.9)
[2020-10-31 13:01] LABS: BILIRUBIN,TOTAL 0.8 mg/dL (0.2-1)
[2020-10-31 13:06] LABS: TOT PROT 4.2 g/dl (6.4-8.2)
[2020-10-31 13:12] LABS: CALCIUM 6.4 mg/dL (8.5-10.1)
[2020-10-31] MEDS ORDERED: INSULIN (LEVEMIR) 100 UNITS/ML UNITS SQ ONE (14:32)
[2020-10-31] MEDS: FENTANYL NS IVPB 500 MCG/100 ML BAG IVPB SCH (14:59)
[2020-10-31] MEDS: PROPOFOL 1,000,000 MCG/100 ML VIAL IVPB SCH (16:44)
[2020-10-31 17:55] LABS: ANISOCYTOSIS 1+
[2020-10-31 17:56] LABS: PLATELET ESTIMATE UNABLE TO ENUMERATE
[2020-10-31] MEDS: CHLORHEXIDINE GLUCONATE 4% CLEANSER FOR DECOLONIZATION TP SCH (21:10)
[2020-11-01] MEDS: INSULIN SLIDING SCALE (NOVOLOG) 1 VIAL SQ SCH ×5 (00:07→21:50)
[2020-11-01] MEDS: INSULIN (LEVEMIR) 100 UNITS/ML UNITS SQ SCH ×2 (00:07→21:50)
[2020-11-01] MEDS: DEXAMETHASONE SOD PHOSPHATE 4 MG/1 ML VIAL IVPUSH SCH ×4 (04:17→21:55)
[2020-11-01] MEDS: PIPERACILLIN/TAZOB 4.5 GM 4.5 GM in DEXTROSE 5%-WATER 100 ML IVPB SCH ×4 (04:17→21:55)
[2020-11-01] MEDS: hydrALAZINE HCL 50 MG TABLET (FP) PO SCH ×3 (05:37→21:55)
[2020-11-01 07:25] LABS: HEMATOCRIT 36.7 % (35.4-49); HEMOGLOBIN 11.9 GM/dL (11.7-16.9); MCH 26.5 pg (25.7-33.7); MCHC 32.5 g/dl (32.0-35.9); MEAN CELL VOLUME 81.5 fl (80-96); MEAN PLT VOLUME 9.7 fl (7.5-11.1); PLATELET COUNT 198 K/MM3 (134-434); RBC 4.51 M/mm3 (4.00-5.60); RDW 14.3 % (11.9-15.9); WHITE BLOOD COUNT 15.6 K/mm3 (4.0-10.0)
[2020-11-01 07:45] LABS: POTASSIUM 4.1 mmol/L (3.5-5.1)
[2020-11-01] MEDS: FENTANYL NS IVPB 500 MCG/100 ML BAG IVPB SCH ×4 (07:46→23:30)
[2020-11-01 07:48] LABS: ALBUMIN 1.8 g/dl (3.4-5.0); BLOOD UREA NITROGEN 58.5 mg/dL (7-18)
[2020-11-01 07:49] LABS: MAGNESIUM 3.2 mg/dL (1.8-2.4)
[2020-11-01 07:52] LABS: CREATININE 1.2 mg/dL (0.55-1.3); PHOSPHOROUS 4.2 mg/dL (2.5-4.9)
[2020-11-01 07:53] LABS: BILIRUBIN,TOTAL 0.4 mg/dL (0.2-1); TOT PROT 4.5 g/dl (6.4-8.2)
[2020-11-01] MEDS ORDERED: LACTATED RINGERS SOLUTION 1,000 ML/1,000 ML INFUS.BAG IV SCH (08:30)
[2020-11-01] MEDS ORDERED: DEXTROSE 5%-WATER 100 ML IVPB ONE ×4 (09:43→21:54)
[2020-11-01] MEDS ORDERED: PIPERACILLIN/TAZOBACTAM 4.5 GM VIAL IVPB ONE ×4 (09:43→21:54)
[2020-11-01] MEDS: TAMSULOSIN HCL 0.4 MG CAP PO SCH (09:44)
[2020-11-01] MEDS: AMINO ACIDS/PROTEIN HYDROLYS 30 ML LIQUID.PKT PO SCH ×2 (09:45→16:59)
[2020-11-01] MEDS: ATENOLOL 50 MG TABLET (FP) PO SCH (09:47)
[2020-11-01] MEDS: FAMOTIDINE 20 MG/50 ML IVPB 20 MG/50 ML MG IVPB SCH ×2 (11:16→21:55)
[2020-11-01] MEDS: PROPOFOL 1,000,000 MCG/100 ML VIAL IVPB SCH ×3 (13:16→21:55)
[2020-11-01] MEDS: HEPARIN NA (PORCINE) 5,000 UNITS/ML 1ML VIAL SQ SCH ×2 (14:54→21:55)
[2020-11-01] MEDS: DOXAZOSIN MESYLATE 1 MG TABLET PO SCH (14:55)
[2020-11-01 16:10] LABS: POTASSIUM 4.1 mmol/L (3.5-5.1)
[2020-11-01 16:11] LABS: CALCIUM 8.3 mg/dL (8.5-10.1)
[2020-11-01 16:12] LABS: BLOOD UREA NITROGEN 59.6 mg/dL (7-18)
[2020-11-01 16:15] LABS: CREATININE 1.1 mg/dL (0.55-1.3)
[2020-11-01] MEDS: CHLORHEXIDINE GLUCONATE 4% CLEANSER FOR DECOLONIZATION TP SCH (21:48)
[2020-11-02] MEDS: PROPOFOL 1,000,000 MCG/100 ML VIAL IVPB SCH ×5 (01:00→19:30)
[2020-11-02] MEDS ORDERED: PIPERACILLIN/TAZOBACTAM 4.5 GM VIAL IVPB ONE ×4 (02:58→22:00)
[2020-11-02] MEDS: DEXAMETHASONE SOD PHOSPHATE 4 MG/1 ML VIAL IVPUSH SCH ×4 (02:58→22:02)
[2020-11-02] MEDS ORDERED: DEXTROSE 5%-WATER 100 ML IVPB ONE ×4 (02:58→22:00)
[2020-11-02] MEDS: PIPERACILLIN/TAZOB 4.5 GM 4.5 GM in DEXTROSE 5%-WATER 100 ML IVPB SCH ×4 (02:58→22:03)
[2020-11-02] MEDS: FENTANYL NS IVPB 500 MCG/100 ML BAG IVPB SCH ×4 (03:23→19:30)
[2020-11-02] MEDS: INSULIN SLIDING SCALE (NOVOLOG) 1 VIAL SQ SCH ×4 (06:28→22:03)
[2020-11-02] MEDS: hydrALAZINE HCL 50 MG TABLET (FP) PO SCH ×3 (06:30→22:03)
[2020-11-02] MEDS: HEPARIN NA (PORCINE) 5,000 UNITS/ML 1ML VIAL SQ SCH ×3 (06:30→22:03)
[2020-11-02 08:16] LABS: HEMATOCRIT 33.3 % (35.4-49); HEMOGLOBIN 11.8 GM/dL (11.7-16.9); MCH 29.3 pg (25.7-33.7); MCHC 35.4 g/dl (32.0-35.9); MEAN CELL VOLUME 82.8 fl (80-96); MEAN PLT VOLUME 10.4 fl (7.5-11.1); PLATELET COUNT 181 K/MM3 (134-434); RBC 4.02 M/mm3 (4.00-5.60); RDW 14.6 % (11.9-15.9); WHITE BLOOD COUNT 21.2 K/mm3 (4.0-10.0)
[2020-11-02 08:37] LABS: CHLORIDE 105 mmol/L (98-107); POTASSIUM 3.5 mmol/L (3.5-5.1); SODIUM 135 mmol/L (136-145)
[2020-11-02 08:40] LABS: ALBUMIN 1.1 g/dl (3.4-5.0); ANION GAP 11 MMOL/L (8-16); CO2 19 mmol/L (21-32); GLUCOSE,RANDOM 209 mg/dL (74-106)
[2020-11-02 08:43] LABS: CREATININE 0.7 mg/dL (0.55-1.3); PHOSPHOROUS 2.4 mg/dL (2.5-4.9)
[2020-11-02] MEDS ORDERED: PT OWN MED DRAWER 7, Y5N ONE (08:46)
[2020-11-02] MEDS: AMINO ACIDS/PROTEIN HYDROLYS 30 ML LIQUID.PKT PO SCH ×2 (08:50→17:45)
[2020-11-02 08:58] LABS: ALK PHOS 38 U/L (45-117); BILIRUBIN,TOTAL 2.3 mg/dL (0.2-1); BLOOD UREA NITROGEN 41.1 mg/dL (7-18); TOT PROT 3.3 g/dl (6.4-8.2)
[2020-11-02] MEDS: DOXAZOSIN MESYLATE 1 MG TABLET PO SCH (09:01)
[2020-11-02] MEDS: FAMOTIDINE 20 MG/50 ML IVPB 20 MG/50 ML MG IVPB SCH ×2 (09:01→22:02)
[2020-11-02] MEDS: ATENOLOL 50 MG TABLET (FP) PO SCH (09:01)
[2020-11-02 10:23] LABS: CALCIUM 5.2 mg/dL (8.5-10.1)
[2020-11-02] MEDS: CHLORHEXIDINE GLUCONATE 4% CLEANSER FOR DECOLONIZATION TP SCH (21:57)
[2020-11-02] MEDS: INSULIN (LEVEMIR) 100 UNITS/ML UNITS SQ SCH (22:03)
[2020-11-03] MEDS ORDERED: PIPERACILLIN/TAZOBACTAM 4.5 GM VIAL IVPB ONE ×2 (01:36→07:41)
[2020-11-03] MEDS: FENTANYL NS IVPB 500 MCG/100 ML BAG IVPB SCH ×2 (01:36→14:00)
[2020-11-03] MEDS ORDERED: DEXTROSE 5%-WATER 100 ML IVPB ONE ×2 (01:36→07:41)
[2020-11-03] MEDS: PROPOFOL 1,000,000 MCG/100 ML VIAL IVPB SCH ×2 (01:37→15:00)
[2020-11-03] MEDS: PIPERACILLIN/TAZOB 4.5 GM 4.5 GM in DEXTROSE 5%-WATER 100 ML IVPB SCH ×2 (02:01→08:14)
[2020-11-03] MEDS: DEXAMETHASONE SOD PHOSPHATE 4 MG/1 ML VIAL IVPUSH SCH ×2 (02:02→08:14)
[2020-11-03] MEDS: HEPARIN NA (PORCINE) 5,000 UNITS/ML 1ML VIAL SQ SCH ×3 (05:30→21:54)
[2020-11-03] MEDS: hydrALAZINE HCL 50 MG TABLET (FP) PO SCH ×3 (05:30→21:53)
[2020-11-03] MEDS: INSULIN SLIDING SCALE (NOVOLOG) 1 VIAL SQ SCH ×4 (06:36→21:53)
[2020-11-03 06:53] LABS: HEMOGLOBIN 11.8 GM/dL (11.7-16.9); MCH 25.7 pg (25.7-33.7); MCHC 31.9 g/dl (32.0-35.9); MEAN CELL VOLUME 80.5 fl (80-96); MEAN PLT VOLUME 10.1 fl (7.5-11.1); PLATELET COUNT 184 K/MM3 (134-434); WHITE BLOOD COUNT 21.2 K/mm3 (4.0-10.0)
[2020-11-03 07:05] LABS: POTASSIUM 3.9 mmol/L (3.5-5.1)
[2020-11-03 07:07] LABS: ALBUMIN 1.8 g/dl (3.4-5.0); CALCIUM 7.9 mg/dL (8.5-10.1)
[2020-11-03 07:08] LABS: MAGNESIUM 3.4 mg/dL (1.8-2.4)
[2020-11-03 07:11] LABS: PHOSPHOROUS 5.6 mg/dL (2.5-4.9)
[2020-11-03 07:12] LABS: TOT PROT 4.9 g/dl (6.4-8.2)
[2020-11-03 07:14] LABS: BILIRUBIN,TOTAL 0.3 mg/dL (0.2-1); BLOOD UREA NITROGEN 81.2 mg/dL (7-18)
[2020-11-03] MEDS: AMINO ACIDS/PROTEIN HYDROLYS 30 ML LIQUID.PKT PO SCH ×2 (07:42→17:07)
[2020-11-03] MEDS ORDERED: SODIUM CHLORIDE 1,000 ML IV SCH (08:15)
[2020-11-03] MEDS ORDERED: SODIUM CHLORIDE 250 ML IV STA (08:16)
[2020-11-03] MEDS ORDERED: PT OWN MED DRAWER 7, Y5N ONE (09:39)
[2020-11-03] MEDS: DOXAZOSIN MESYLATE 1 MG TABLET PO SCH (09:45)
[2020-11-03] MEDS: FAMOTIDINE 20 MG/50 ML IVPB 20 MG/50 ML MG IVPB SCH ×2 (09:45→21:54)
[2020-11-03] MEDS: ATENOLOL 50 MG TABLET (FP) PO SCH (09:46)
[2020-11-03] MEDS: DEXAMETHASONE SOD PHOSPHATE 10 MG/1 ML VIAL IVPUSH SCH ×2 (14:01→21:49)
[2020-11-03] MEDS ORDERED: SODIUM CHLORIDE 0.45% 1,000 ML IV SCH (19:15)
[2020-11-03] MEDS: INSULIN (LEVEMIR) 100 UNITS/ML UNITS SQ SCH (21:53)
[2020-11-03] MEDS: CHLORHEXIDINE GLUCONATE 4% CLEANSER FOR DECOLONIZATION TP SCH (21:54)
[2020-11-04] MEDS ORDERED: NOREPINEPHRINE BITARTRATE 8,000 MCG/500 ML BAG IVPB ONE (00:32)
[2020-11-04] MEDS: DEXAMETHASONE SOD PHOSPHATE 10 MG/1 ML VIAL IVPUSH SCH ×4 (03:54→21:50)
[2020-11-04] MEDS: hydrALAZINE HCL 50 MG TABLET (FP) PO SCH ×4 (06:55→21:51)
[2020-11-04] MEDS: HEPARIN NA (PORCINE) 5,000 UNITS/ML 1ML VIAL SQ SCH ×3 (07:00→21:50)
[2020-11-04 07:24] LABS: HEMATOCRIT 38.2 % (35.4-49); HEMOGLOBIN 12.2 GM/dL (11.7-16.9); MCH 25.8 pg (25.7-33.7); MCHC 31.8 g/dl (32.0-35.9); MEAN CELL VOLUME 81.2 fl (80-96); MEAN PLT VOLUME 10.1 fl (7.5-11.1); PLATELET COUNT 177 K/MM3 (134-434); RDW 14.4 % (11.9-15.9)
[2020-11-04 07:43] LABS: POTASSIUM 4.4 mmol/L (3.5-5.1)
[2020-11-04 08:00] LABS: ALBUMIN 1.7 g/dl (3.4-5.0); CALCIUM 8.3 mg/dL (8.5-10.1); MAGNESIUM 3.6 mg/dL (1.8-2.4)
[2020-11-04 08:04] LABS: CREATININE 3.4 mg/dL (0.55-1.3)
[2020-11-04 08:05] LABS: BILIRUBIN,TOTAL 0.4 mg/dL (0.2-1); TOT PROT 5.2 g/dl (6.4-8.2)
[2020-11-04 08:25] LABS: PHOSPHOROUS 8.4 mg/dL (2.5-4.9)
[2020-11-04 09:05] LABS: BLOOD UREA NITROGEN 120.3 mg/dL (7-18)
[2020-11-04] MEDS: ATENOLOL 50 MG TABLET (FP) PO SCH (09:23)
[2020-11-04] MEDS: AMINO ACIDS/PROTEIN HYDROLYS 30 ML LIQUID.PKT PO SCH ×2 (09:23→17:32)
[2020-11-04] MEDS: FAMOTIDINE 20 MG/50 ML IVPB 20 MG/50 ML MG IVPB SCH ×2 (09:23→21:50)
[2020-11-04] MEDS ORDERED: PT OWN MED DRAWER 7, Y5N ONE ×2 (09:34→17:55)
[2020-11-04] MEDS: DOXAZOSIN MESYLATE 2 MG TABLET PO SCH (09:35)
[2020-11-04] MEDS: INSULIN SLIDING SCALE (NOVOLOG) 1 VIAL SQ SCH ×4 (12:41→21:56)
[2020-11-04] MEDS ORDERED: PIPERACILLIN/TAZOBACTAM 2.25 GM VIAL IVPB ONE ×3 (12:43→23:45)
[2020-11-04] MEDS ORDERED: DEXTROSE 5%-WATER - 50 ML IVPB ONE ×3 (12:43→23:45)
[2020-11-04] MEDS: PIPERACILLIN/TAZOB 2.25 GM 2.25 GM in DEXTROSE 5%-WATER - 50 ML IVPB SCH ×2 (12:44→17:25)
[2020-11-04] MEDS: PROPOFOL 1,000,000 MCG/100 ML VIAL IVPB SCH ×2 (15:00→20:30)
[2020-11-04] MEDS: FENTANYL NS IVPB 500 MCG/100 ML BAG IVPB SCH (16:33)
[2020-11-04] MEDS ORDERED: SODIUM CHLORIDE 0.45% 1,000 ML IV SCH (18:22)
[2020-11-04 20:34] LABS: URINE APPEARANCE BLOODY; URINE COLOR RED
[2020-11-04 20:35] LABS: EPI CELLS 0 /uL (0-25.1); HYALINE CASTS 0 /uL (0-3.1); URINE RBC >100 /uL (0-23.9); URINE WBC 0-5 /uL (0-25.8)
[2020-11-04 20:36] LABS: URINE BACTERIA FEW /uL (0-1359)
[2020-11-04 20:39] LABS: YEAST MODERATE (NEGATIVE)
[2020-11-04] MEDS: CHLORHEXIDINE GLUCONATE 4% CLEANSER FOR DECOLONIZATION TP SCH (21:51)
[2020-11-05] MEDS: DEXAMETHASONE SOD PHOSPHATE 10 MG/1 ML VIAL IVPUSH SCH ×4 (02:28→22:20)
[2020-11-05] MEDS: PIPERACILLIN/TAZOB 2.25 GM 2.25 GM in DEXTROSE 5%-WATER - 50 ML IVPB SCH ×3 (02:28→18:15)
[2020-11-05] MEDS: FENTANYL NS IVPB 500 MCG/100 ML BAG IVPB SCH ×3 (02:29→14:21)
[2020-11-05] MEDS: HEPARIN NA (PORCINE) 5,000 UNITS/ML 1ML VIAL SQ SCH ×3 (06:31→22:21)
[2020-11-05] MEDS: hydrALAZINE HCL 50 MG TABLET (FP) PO SCH ×3 (06:31→22:21)
[2020-11-05] MEDS: INSULIN SLIDING SCALE (NOVOLOG) 1 VIAL SQ SCH ×4 (06:49→22:47)
[2020-11-05 07:32] LABS: HEMATOCRIT 29.5 % (35.4-49); HEMOGLOBIN 9.3 GM/dL (11.7-16.9); MCH 25.5 pg (25.7-33.7); MCHC 31.6 g/dl (32.0-35.9); MEAN CELL VOLUME 80.9 fl (80-96); MEAN PLT VOLUME 10.5 fl (7.5-11.1); PLATELET COUNT 137 K/MM3 (134-434); RBC 3.65 M/mm3 (4.00-5.60); RDW 14.1 % (11.9-15.9); WHITE BLOOD COUNT 18.1 K/mm3 (4.0-10.0)
[2020-11-05 07:46] LABS: POTASSIUM 4.1 mmol/L (3.5-5.1)
[2020-11-05 07:49] LABS: ALBUMIN 1.2 g/dl (3.4-5.0); CALCIUM 7.8 mg/dL (8.5-10.1); MAGNESIUM 3.4 mg/dL (1.8-2.4)
[2020-11-05 07:51] LABS: CREATININE 4.2 mg/dL (0.55-1.3)
[2020-11-05 07:53] LABS: BILIRUBIN,TOTAL 0.3 mg/dL (0.2-1); TOT PROT 4.3 g/dl (6.4-8.2)
[2020-11-05 08:38] LABS: PHOSPHOROUS 9.4 mg/dL (2.5-4.9)
[2020-11-05] MEDS ORDERED: DEXTROSE 5%-WATER - 50 ML IVPB ONE ×2 (08:45→17:51)
[2020-11-05] MEDS ORDERED: PIPERACILLIN/TAZOBACTAM 2.25 GM VIAL IVPB ONE ×2 (08:45→17:51)
[2020-11-05] MEDS: PROPOFOL 1,000,000 MCG/100 ML VIAL IVPB SCH ×2 (08:47→14:38)
[2020-11-05] MEDS: AMINO ACIDS/PROTEIN HYDROLYS 30 ML LIQUID.PKT PO SCH ×2 (08:58→18:16)
[2020-11-05] MEDS: FAMOTIDINE 20 MG/50 ML IVPB 20 MG/50 ML MG IVPB SCH ×2 (09:01→22:22)
[2020-11-05] MEDS: ATENOLOL 50 MG TABLET (FP) PO SCH (12:46)
[2020-11-05] MEDS ORDERED: PT OWN MED DRAWER 7, Y5N ONE ×2 (14:19→21:52)
[2020-11-05] MEDS: DOXAZOSIN MESYLATE 2 MG TABLET PO SCH (14:22)
[2020-11-05] MEDS: CHLORHEXIDINE GLUCONATE 4% CLEANSER FOR DECOLONIZATION TP SCH (22:22)
[2020-11-06] MEDS ORDERED: DEXTROSE 5%-WATER - 50 ML IVPB ONE ×4 (00:55→22:50)
[2020-11-06] MEDS ORDERED: PIPERACILLIN/TAZOBACTAM 2.25 GM VIAL IVPB ONE ×4 (00:55→22:50)
[2020-11-06] MEDS: PIPERACILLIN/TAZOB 2.25 GM 2.25 GM in DEXTROSE 5%-WATER - 50 ML IVPB SCH ×3 (01:07→17:50)
[2020-11-06] MEDS: DEXAMETHASONE SOD PHOSPHATE 10 MG/1 ML VIAL IVPUSH SCH ×3 (03:37→17:50)
[2020-11-06 06:47] LABS: ALLENS TEST POSITIVE; ARTERIAL BLD GAS O2 SATURATION 98.4 mmHg (95-98); ARTERIAL BLOOD GAS BASE EXCESS -11.3 mmol/L (-2-2); ARTERIAL BLOOD GAS PO2 141.8 mmHg (80-100); ARTERIAL BLOOD GAS pH 7.226 (7.350-7.450)
[2020-11-06 06:48] LABS: VENT MODE A/C; VENT RATE 12
[2020-11-06] MEDS: HEPARIN NA (PORCINE) 5,000 UNITS/ML 1ML VIAL SQ SCH ×3 (06:56→22:03)
[2020-11-06 07:01] LABS: HEMATOCRIT 29.7 % (35.4-49); HEMOGLOBIN 9.6 GM/dL (11.7-16.9); MCH 25.8 pg (25.7-33.7); MCHC 32.3 g/dl (32.0-35.9); MEAN CELL VOLUME 79.9 fl (80-96); MEAN PLT VOLUME 10.5 fl (7.5-11.1); PLATELET COUNT 153 K/MM3 (134-434); RBC 3.72 M/mm3 (4.00-5.60); RDW 14.3 % (11.9-15.9); WHITE BLOOD COUNT 16.6 K/mm3 (4.0-10.0)
[2020-11-06 07:18] LABS: POTASSIUM 4.7 mmol/L (3.5-5.1)
[2020-11-06 07:26] LABS: ALBUMIN 1.2 g/dl (3.4-5.0); CALCIUM 7.9 mg/dL (8.5-10.1); MAGNESIUM 3.4 mg/dL (1.8-2.4)
[2020-11-06 07:29] LABS: CREATININE 4.5 mg/dL (0.55-1.3)
[2020-11-06 07:31] LABS: BILIRUBIN,TOTAL 0.4 mg/dL (0.2-1); TOT PROT 4.3 g/dl (6.4-8.2)
[2020-11-06] MEDS: hydrALAZINE HCL 50 MG TABLET (FP) PO SCH ×3 (07:48→22:03)
[2020-11-06] MEDS: INSULIN SLIDING SCALE (NOVOLOG) 1 VIAL SQ SCH ×4 (07:48→22:04)
[2020-11-06 08:42] LABS: BLOOD UREA NITROGEN 164.4 mg/dL (7-18); PHOSPHOROUS 10.3 mg/dL (2.5-4.9)
[2020-11-06] MEDS ORDERED: PT OWN MED DRAWER 7, Y5N ONE (09:04)
[2020-11-06] MEDS: AMINO ACIDS/PROTEIN HYDROLYS 30 ML LIQUID.PKT PO SCH ×2 (10:08→17:49)
[2020-11-06] MEDS: DOXAZOSIN MESYLATE 2 MG TABLET PO SCH (10:08)
[2020-11-06] MEDS: FAMOTIDINE 20 MG/50 ML IVPB 20 MG/50 ML MG IVPB SCH ×2 (10:09→22:04)
[2020-11-06] MEDS: ATENOLOL 50 MG TABLET (FP) PO SCH (10:09)
[2020-11-06] MEDS ORDERED: LORazepam 2 MG/ML SDV VIAL IVPUSH PRN (14:55)
[2020-11-06] MEDS: LACTATED RINGERS SOLUTION 1,000 ML/1,000 ML INFUS.BAG IV SCH (17:00)
[2020-11-06] MEDS: FENTANYL NS IVPB 500 MCG/100 ML BAG IVPB SCH (17:45)
[2020-11-06] MEDS ORDERED: PROPOFOL 1,000,000 MCG/100 ML VIAL IVPB SCH (18:00)
[2020-11-06] MEDS: CHLORHEXIDINE GLUCONATE 4% CLEANSER FOR DECOLONIZATION TP SCH (22:03)
[2020-11-07] MEDS: PIPERACILLIN/TAZOB 2.25 GM 2.25 GM in DEXTROSE 5%-WATER - 50 ML IVPB SCH ×2 (01:40→09:49)
[2020-11-07] MEDS: DEXAMETHASONE SOD PHOSPHATE 10 MG/1 ML VIAL IVPUSH SCH ×2 (06:51→18:10)
[2020-11-07] MEDS: hydrALAZINE HCL 50 MG TABLET (FP) PO SCH ×3 (06:51→22:17)
[2020-11-07] MEDS: HEPARIN NA (PORCINE) 5,000 UNITS/ML 1ML VIAL SQ SCH ×3 (06:51→22:17)
[2020-11-07 07:14] LABS: BASO % 0.4 % (0-2.0); HEMATOCRIT 31.9 % (35.4-49); HEMOGLOBIN 10.4 GM/dL (11.7-16.9); LYMPH % 4.4 % (8-40); MCH 25.8 pg (25.7-33.7); MCHC 32.7 g/dl (32.0-35.9); MEAN CELL VOLUME 78.8 fl (80-96); MEAN PLT VOLUME 10.1 fl (7.5-11.1); MONO % 5.4 % (3.8-10.2); NEUT % 89.8 % (42.8-82.8); PLATELET COUNT 179 K/MM3 (134-434); RBC 4.04 M/mm3 (4.00-5.60); RDW 14.1 % (11.9-15.9); WHITE BLOOD COUNT 15.8 K/mm3 (4.0-10.0)
[2020-11-07 07:18] LABS: CHLORIDE 108 mmol/L (98-107); POTASSIUM 4.5 mmol/L (3.5-5.1); SODIUM 140 mmol/L (136-145)
[2020-11-07] MEDS: INSULIN SLIDING SCALE (NOVOLOG) 1 VIAL SQ SCH ×4 (07:22→22:43)
[2020-11-07 07:24] LABS: CALCIUM 7.9 mg/dL (8.5-10.1)
[2020-11-07 07:25] LABS: ALBUMIN 1.3 g/dl (3.4-5.0); ANION GAP 15 MMOL/L (8-16); CO2 18 mmol/L (21-32); GLUCOSE,RANDOM 164 mg/dL (74-106); MAGNESIUM 3.3 mg/dL (1.8-2.4)
[2020-11-07 07:28] LABS: CREATININE 4.7 mg/dL (0.55-1.3); SGOT/AST 14 U/L (15-37); SGPT/ALT 47 U/L (13-61)
[2020-11-07 07:29] LABS: BILIRUBIN,TOTAL 0.4 mg/dL (0.2-1); TOT PROT 4.6 g/dl (6.4-8.2)
[2020-11-07 07:30] LABS: ALK PHOS 62 U/L (45-117)
[2020-11-07 08:17] LABS: BLOOD UREA NITROGEN 174.6 mg/dL (7-18); PHOSPHOROUS > 9.0 mg/dL (2.5-4.9)
[2020-11-07] MEDS ORDERED: PT OWN MED DRAWER 7, Y5N ONE (09:41)
[2020-11-07] MEDS ORDERED: PIPERACILLIN/TAZOBACTAM 2.25 GM VIAL IVPB ONE ×2 (09:41→15:24)
[2020-11-07] MEDS ORDERED: DEXTROSE 5%-WATER - 50 ML IVPB ONE ×2 (09:41→15:24)
[2020-11-07] MEDS: AMINO ACIDS/PROTEIN HYDROLYS 30 ML LIQUID.PKT PO SCH ×2 (09:48→17:50)
[2020-11-07] MEDS: FAMOTIDINE 20 MG/50 ML IVPB 20 MG/50 ML MG IVPB SCH ×2 (09:50→22:17)
[2020-11-07] MEDS: ATENOLOL 50 MG TABLET (FP) PO SCH (09:50)
[2020-11-07] MEDS: DOXAZOSIN MESYLATE 2 MG TABLET PO SCH (09:50)
[2020-11-07] MEDS: FENTANYL NS IVPB 500 MCG/100 ML BAG IVPB SCH (12:00)
[2020-11-07 13:21] LABS: ANISOCYTOSIS 1+; MACROCYTOSIS 1+; PLATELET ESTIMATE NORMAL
[2020-11-07] MEDS ORDERED: PROPOFOL 1,000,000 MCG/100 ML VIAL ONE (15:24)
[2020-11-07] MEDS: LACTATED RINGERS SOLUTION 1,000 ML/1,000 ML INFUS.BAG IV SCH (17:47)
[2020-11-07] MEDS: SEVELAMER CARBONATE 2.4 GM POWDER PACKET PO SCH (18:10)
[2020-11-07] MEDS: PROPOFOL 1,000,000 MCG/100 ML VIAL IVPB SCH (19:00)
[2020-11-07] MEDS: CHLORHEXIDINE GLUCONATE 4% CLEANSER FOR DECOLONIZATION TP SCH (22:17)
[2020-11-08] MEDS: HEPARIN NA (PORCINE) 5,000 UNITS/ML 1ML VIAL SQ SCH ×3 (06:07→23:03)
[2020-11-08] MEDS: hydrALAZINE HCL 50 MG TABLET (FP) PO SCH ×3 (06:08→23:02)
[2020-11-08] MEDS: DEXAMETHASONE SOD PHOSPHATE 10 MG/1 ML VIAL IVPUSH SCH ×2 (06:08→17:45)
[2020-11-08 06:56] LABS: HEMATOCRIT 30.8 % (35.4-49); MCH 25.7 pg (25.7-33.7); MCHC 32.3 g/dl (32.0-35.9); MEAN CELL VOLUME 79.4 fl (80-96); MEAN PLT VOLUME 10.1 fl (7.5-11.1); PLATELET COUNT 172 K/MM3 (134-434); RBC 3.89 M/mm3 (4.00-5.60); RDW 14.2 % (11.9-15.9)
[2020-11-08 07:11] LABS: POTASSIUM 4.7 mmol/L (3.5-5.1)
[2020-11-08 07:17] LABS: ALBUMIN 1.2 g/dl (3.4-5.0); CALCIUM 7.7 mg/dL (8.5-10.1); MAGNESIUM 3.3 mg/dL (1.8-2.4)
[2020-11-08 07:20] LABS: CREATININE 4.6 mg/dL (0.55-1.3)
[2020-11-08 07:22] LABS: BILIRUBIN,TOTAL 0.4 mg/dL (0.2-1); TOT PROT 4.6 g/dl (6.4-8.2)
[2020-11-08] MEDS: INSULIN SLIDING SCALE (NOVOLOG) 1 VIAL SQ SCH ×4 (07:34→23:03)
[2020-11-08] MEDS: FENTANYL NS IVPB 500 MCG/100 ML BAG IVPB SCH ×3 (07:51→13:58)
[2020-11-08] MEDS ORDERED: MIDAZOLAM HCL 2 MG/2 ML SINGLE DOSE VIAL IVPUSH ONE (08:11)
[2020-11-08 08:12] LABS: BLOOD UREA NITROGEN 175.4 mg/dL (7-18); PHOSPHOROUS 10.2 mg/dL (2.5-4.9)
[2020-11-08] MEDS ORDERED: MIDAZOLAM 100 MG/100 ML MG IVPB SCH (08:15)
[2020-11-08] MEDS ORDERED: PT OWN MED DRAWER 7, Y5N ONE (10:11)
[2020-11-08] MEDS: SEVELAMER CARBONATE 2.4 GM POWDER PACKET PO SCH ×3 (10:14→17:45)
[2020-11-08] MEDS: DOXAZOSIN MESYLATE 2 MG TABLET PO SCH (10:14)
[2020-11-08] MEDS: ATENOLOL 50 MG TABLET (FP) PO SCH (10:17)
[2020-11-08] MEDS: AMINO ACIDS/PROTEIN HYDROLYS 30 ML LIQUID.PKT PO SCH ×2 (10:17→17:45)
[2020-11-08] MEDS: FAMOTIDINE 20 MG/50 ML IVPB 20 MG/50 ML MG IVPB SCH ×2 (10:17→23:03)
[2020-11-08] MEDS ORDERED: LACTATED RINGERS SOLUTION 1,000 ML/1,000 ML INFUS.BAG IV SCH ×2 (13:15→17:38)
[2020-11-08] MEDS ORDERED: ACETYLCYSTEINE 20% 200MG/ML 4 ML VIAL *FOR ORAL / INH USE ONLY NEB ONE (13:45)
[2020-11-08] MEDS ORDERED: ALBUTEROL SO4 0.083% IH SOL 2.5 MG/3 ML VIAL.NEB. NEB ONE (13:45)
[2020-11-08] MEDS: PROPOFOL 1,000,000 MCG/100 ML VIAL IVPB SCH ×2 (14:00→18:45)
[2020-11-08] MEDS: NOREPINEPHRINE BITARTRATE 8,000 MCG/500 ML BAG IVPB SCH (22:00)
[2020-11-08] MEDS: CHLORHEXIDINE GLUCONATE 4% CLEANSER FOR DECOLONIZATION TP SCH (23:03)
[2020-11-09] MEDS ORDERED: INSULIN (NOVOLOG) ASPART 100 UNITS/ML 10ML VIAL ONE (02:50)
[2020-11-09] MEDS: hydrALAZINE HCL 50 MG TABLET (FP) PO SCH ×3 (05:45→21:28)
[2020-11-09] MEDS: HEPARIN NA (PORCINE) 5,000 UNITS/ML 1ML VIAL SQ SCH ×3 (06:30→21:25)
[2020-11-09] MEDS: INSULIN SLIDING SCALE (NOVOLOG) 1 VIAL SQ SCH ×4 (06:30→21:35)
[2020-11-09] MEDS: DEXAMETHASONE SOD PHOSPHATE 10 MG/1 ML VIAL IVPUSH SCH ×2 (06:30→18:05)
[2020-11-09 07:13] LABS: HEMATOCRIT 30.6 % (35.4-49); MCH 26.1 pg (25.7-33.7); MCHC 32.8 g/dl (32.0-35.9); MEAN CELL VOLUME 79.6 fl (80-96); PLATELET COUNT 193 K/MM3 (134-434); RBC 3.85 M/mm3 (4.00-5.60); RDW 14.4 % (11.9-15.9); WHITE BLOOD COUNT 14.3 K/mm3 (4.0-10.0)
[2020-11-09] MEDS: SEVELAMER CARBONATE 2.4 GM POWDER PACKET PO SCH ×3 (07:38→17:09)
[2020-11-09] MEDS: AMINO ACIDS/PROTEIN HYDROLYS 30 ML LIQUID.PKT PO SCH ×2 (07:38→16:58)
[2020-11-09 07:48] LABS: ALBUMIN 1.2 g/dl (3.4-5.0); MAGNESIUM 3.2 mg/dL (1.8-2.4)
[2020-11-09 07:51] LABS: CREATININE 4.7 mg/dL (0.55-1.3)
[2020-11-09 07:52] LABS: BILIRUBIN,TOTAL 0.5 mg/dL (0.2-1); TOT PROT 4.5 g/dl (6.4-8.2)
[2020-11-09 09:06] LABS: BLOOD UREA NITROGEN 181.4 mg/dL (7-18); PHOSPHOROUS 11.6 mg/dL (2.5-4.9)
[2020-11-09] MEDS ORDERED: PT OWN MED DRAWER 7, Y5N ONE (10:12)
[2020-11-09] MEDS: FAMOTIDINE 20 MG/50 ML IVPB 20 MG/50 ML MG IVPB SCH ×2 (10:15→21:29)
[2020-11-09] MEDS: ATENOLOL 50 MG TABLET (FP) PO SCH (10:17)
[2020-11-09] MEDS: DOXAZOSIN MESYLATE 2 MG TABLET PO SCH (11:10)
[2020-11-09] MEDS ORDERED: SODIUM BICARBONATE 8.4% 50 MEQ/50 ML DISP.SYRIN IVPUSH ONE ×3 (12:16→18:40)
[2020-11-09] MEDS: FENTANYL NS IVPB 500 MCG/100 ML BAG IVPB SCH (13:30)
[2020-11-09] MEDS ORDERED: SODIUM CHLORIDE 0.45% 1,000 ML IV SCH (14:15)
[2020-11-09] MEDS ORDERED: SODIUM CHLORIDE 0.45% 1,000 ML with SODIUM BICARBONATE 8.4% - 50 MEQ IV SCH ×2 (16:38→16:39)
[2020-11-09] MEDS ORDERED: SODIUM BICARBONATE 8.4% 50 MEQ/50 ML VIAL ONE (16:50)
[2020-11-09 17:46] LABS: CALCIUM 7.9 mg/dL (8.5-10.1)
[2020-11-09 17:49] LABS: CREATININE 4.9 mg/dL (0.55-1.3)
[2020-11-09 17:52] LABS: ARTERIAL BLOOD GAS BASE EXCESS -12.3 mmol/L (-2-2); ARTERIAL BLOOD GAS PO2 101.2 mmHg (80-100); ARTERIAL BLOOD GAS pH 7.281 (7.350-7.450)
[2020-11-09 17:53] LABS: ALLENS TEST POSITIVE
[2020-11-09 17:54] LABS: PT'S TEMP 98.6; VENT MODE AC; VENT RATE 12
[2020-11-09 17:57] LABS: BLOOD UREA NITROGEN 179.2 mg/dL (7-18)
[2020-11-09] MEDS: SODIUM BICARBONATE 8.4% - 50 MEQ in SODIUM CHLORIDE 0.45% 1,000 ML IV SCH (18:08)
[2020-11-09] MEDS: PROPOFOL 1,000,000 MCG/100 ML VIAL IVPB SCH ×2 (18:45→22:00)
[2020-11-09 18:57] LABS: EPI CELLS 2 /uL (0-25.1); HYALINE CASTS 5 /uL (0-3.1); URINE APPEARANCE TURBID; URINE BACTERIA 107 /uL (0-1359); URINE BILIRUBIN NEGATIVE (NEGATIVE); URINE COLOR ORANGE; URINE GLUCOSE (UA) NEGATIVE (NEGATIVE); URINE KETONE NEGATIVE (NEGATIVE); URINE LEUK ESTERASE 2+ (NEGATIVE); URINE NITRITE NEGATIVE (NEGATIVE); URINE PROTEIN 2+ (NEGATIVE); URINE RBC 1662 /uL (0-23.9); URINE UROBILINOGEN 0.2 mg/dL (0.2-1.0); URINE WBC 624 /uL (0-25.8)
[2020-11-09] MEDS: NYSTATIN POWDER 100,000 UNITS/GM - 15 GM TOPICAL POWDER TP SCH (21:26)
[2020-11-09] MEDS: CHLORHEXIDINE GLUCONATE 4% CLEANSER FOR DECOLONIZATION TP SCH (21:28)
[2020-11-09] MEDS: NOREPINEPHRINE BITARTRATE 8,000 MCG/500 ML BAG IVPB SCH (22:16)
[2020-11-10] MEDS ORDERED: SODIUM BICARBONATE 8.4% 50 MEQ/50 ML DISP.SYRIN IVPUSH ONE
[2020-11-10] MEDS ORDERED: SODIUM BICARBONATE 8.4% 50 MEQ/50 ML VIAL ONE (00:24)
[2020-11-10] MEDS: HEPARIN NA (PORCINE) 5,000 UNITS/ML 1ML VIAL SQ SCH ×3 (06:09→22:27)
[2020-11-10] MEDS: hydrALAZINE HCL 50 MG TABLET (FP) PO SCH ×3 (06:09→22:27)
[2020-11-10] MEDS: INSULIN SLIDING SCALE (NOVOLOG) 1 VIAL SQ SCH ×5 (06:16→22:33)
[2020-11-10 07:12] LABS: BASO % 0.2 % (0-2.0); EOS % 0.1 % (0-4.5); HEMATOCRIT 28.5 % (35.4-49); HEMOGLOBIN 9.4 GM/dL (11.7-16.9); LYMPH % 2.6 % (8-40); MCHC 33.2 g/dl (32.0-35.9); MEAN CELL VOLUME 78.3 fl (80-96); MEAN PLT VOLUME 9.7 fl (7.5-11.1); MONO % 4.1 % (3.8-10.2); PLATELET COUNT 206 K/MM3 (134-434); RBC 3.64 M/mm3 (4.00-5.60); RDW 14.6 % (11.9-15.9); WHITE BLOOD COUNT 14.8 K/mm3 (4.0-10.0)
[2020-11-10 07:25] LABS: POTASSIUM 4.6 mmol/L (3.5-5.1)
[2020-11-10 07:30] LABS: ALBUMIN 1.2 g/dl (3.4-5.0); CALCIUM 7.6 mg/dL (8.5-10.1); MAGNESIUM 3.1 mg/dL (1.8-2.4)
[2020-11-10] MEDS: SEVELAMER CARBONATE 2.4 GM POWDER PACKET PO SCH ×3 (07:30→18:13)
[2020-11-10] MEDS: AMINO ACIDS/PROTEIN HYDROLYS 30 ML LIQUID.PKT PO SCH ×2 (07:30→18:13)
[2020-11-10 07:33] LABS: CREATININE 4.7 mg/dL (0.55-1.3)
[2020-11-10 07:35] LABS: BILIRUBIN,TOTAL 0.4 mg/dL (0.2-1); TOT PROT 4.4 g/dl (6.4-8.2)
[2020-11-10 09:03] LABS: ANISOCYTOSIS 2+; MACROCYTOSIS 0; PLATELET ESTIMATE NORMAL
[2020-11-10] MEDS: FAMOTIDINE 20 MG/50 ML IVPB 20 MG/50 ML MG IVPB SCH ×2 (09:05→22:27)
[2020-11-10] MEDS ORDERED: PT OWN MED DRAWER 7, Y5N ONE (09:15)
[2020-11-10] MEDS: ATENOLOL 50 MG TABLET (FP) PO SCH (09:25)
[2020-11-10] MEDS: NYSTATIN POWDER 100,000 UNITS/GM - 15 GM TOPICAL POWDER TP SCH ×2 (09:29→22:27)
[2020-11-10] MEDS ORDERED: DEXAMETHASONE SOD PHOSPHATE 4 MG/1 ML VIAL IVPUSH SCH (10:00)
[2020-11-10] MEDS: SODIUM BICARBONATE 8.4% - 50 MEQ in SODIUM CHLORIDE 0.45% 1,000 ML IV SCH (10:04)
[2020-11-10] MEDS: DOXAZOSIN MESYLATE 2 MG TABLET PO SCH (10:30)
[2020-11-10] MEDS ORDERED: FUROSEMIDE 40 MG/4 ML INJECTABLE VIAL IVPUSH ONE (11:43)
[2020-11-10 11:46] LABS: BLOOD UREA NITROGEN 180.4 mg/dL (7-18); PHOSPHOROUS 9.7 mg/dL (2.5-4.9)
[2020-11-10] MEDS: PROPOFOL 1,000,000 MCG/100 ML VIAL IVPB SCH (19:15)
[2020-11-10] MEDS: CHLORHEXIDINE GLUCONATE 4% CLEANSER FOR DECOLONIZATION TP SCH (22:27)
[2020-11-10] MEDS: NOREPINEPHRINE BITARTRATE 8,000 MCG/500 ML BAG IVPB SCH (22:31)
[2020-11-11] MEDS: PROPOFOL 1,000,000 MCG/100 ML VIAL IVPB SCH ×2 (03:45→19:08)
[2020-11-11] MEDS: hydrALAZINE HCL 50 MG TABLET (FP) PO SCH ×2 (05:48→15:00)
[2020-11-11] MEDS: HEPARIN NA (PORCINE) 5,000 UNITS/ML 1ML VIAL SQ SCH ×3 (05:49→21:47)
[2020-11-11] MEDS: INSULIN SLIDING SCALE (NOVOLOG) 1 VIAL SQ SCH ×4 (06:28→22:08)
[2020-11-11 07:05] LABS: BASO % 0.4 % (0-2.0); EOS % 0.7 % (0-4.5); HEMATOCRIT 25.6 % (35.4-49); HEMOGLOBIN 8.6 GM/dL (11.7-16.9); LYMPH % 3.6 % (8-40); MCH 26.2 pg (25.7-33.7); MCHC 33.7 g/dl (32.0-35.9); MEAN CELL VOLUME 77.8 fl (80-96); MEAN PLT VOLUME 9.7 fl (7.5-11.1); MONO % 3.4 % (3.8-10.2); NEUT % 91.9 % (42.8-82.8); PLATELET COUNT 191 K/MM3 (134-434); RBC 3.29 M/mm3 (4.00-5.60); WHITE BLOOD COUNT 14.4 K/mm3 (4.0-10.0)
[2020-11-11 07:24] LABS: POTASSIUM 4.5 mmol/L (3.5-5.1)
[2020-11-11 07:31] LABS: CALCIUM 7.4 mg/dL (8.5-10.1)
[2020-11-11 07:32] LABS: ALBUMIN 1.2 g/dl (3.4-5.0); MAGNESIUM 3.1 mg/dL (1.8-2.4)
[2020-11-11 07:34] LABS: BILIRUBIN,TOTAL 0.4 mg/dL (0.2-1); CREATININE 4.9 mg/dL (0.55-1.3); TOT PROT 4.4 g/dl (6.4-8.2)
[2020-11-11 07:58] LABS: PHOSPHOROUS 8.4 mg/dL (2.5-4.9)
[2020-11-11 08:07] LABS: BLOOD UREA NITROGEN 178.8 mg/dL (7-18)
[2020-11-11] MEDS ORDERED: FUROSEMIDE 40 MG/4 ML INJECTABLE VIAL IVPB ONE (08:19)
[2020-11-11] MEDS: AMINO ACIDS/PROTEIN HYDROLYS 30 ML LIQUID.PKT PO SCH (10:00)
[2020-11-11] MEDS: SEVELAMER CARBONATE 2.4 GM POWDER PACKET PO SCH ×3 (10:01→21:48)
[2020-11-11] MEDS: ATENOLOL 50 MG TABLET (FP) PO SCH (10:03)
[2020-11-11] MEDS: NYSTATIN POWDER 100,000 UNITS/GM - 15 GM TOPICAL POWDER TP SCH ×2 (10:04→21:48)
[2020-11-11] MEDS: FAMOTIDINE 20 MG/50 ML IVPB 20 MG/50 ML MG IVPB SCH ×2 (10:04→21:48)
[2020-11-11] MEDS: DOXAZOSIN MESYLATE 2 MG TABLET PO SCH (10:16)
[2020-11-11 11:01] LABS: ANISOCYTOSIS 1+; MACROCYTOSIS 0; PLATELET ESTIMATE NORMAL
[2020-11-11] MEDS ORDERED: ROCURONIUM BROMIDE 50 MG/5 ML VIAL IV ONE (11:05)
[2020-11-11] MEDS ORDERED: hydrALAZINE HCL 20 MG/ML VIAL IVPUSH PRN (15:02)
[2020-11-11] MEDS ORDERED: hydrALAZINE HCL 20 MG/ML VIAL ONE (15:08)
[2020-11-11] MEDS: hydrALAZINE HCL 20 MG/ML VIAL IVPUSH PRN (15:14)
[2020-11-11] MEDS ORDERED: hydrALAZINE HCL 20 MG/ML VIAL IVPUSH ONE (18:33)
[2020-11-11] MEDS: NOREPINEPHRINE BITARTRATE 8,000 MCG/500 ML BAG IVPB SCH (21:46)
[2020-11-11] MEDS: CHLORHEXIDINE GLUCONATE 4% CLEANSER FOR DECOLONIZATION TP SCH (21:47)
[2020-11-12] MEDS: hydrALAZINE HCL 20 MG/ML VIAL IVPUSH PRN (03:02)
[2020-11-12] MEDS: INSULIN SLIDING SCALE (NOVOLOG) 1 VIAL SQ SCH ×4 (06:44→21:58)
[2020-11-12] MEDS: HEPARIN NA (PORCINE) 5,000 UNITS/ML 1ML VIAL SQ SCH ×3 (06:44→21:26)
[2020-11-12 07:42] LABS: CHLORIDE 106 mmol/L (98-107); SODIUM 141 mmol/L (136-145)
[2020-11-12 07:43] LABS: BASO % 0.5 % (0-2.0); EOS % 0.3 % (0-4.5); HEMATOCRIT 26.3 % (35.4-49); HEMOGLOBIN 8.6 GM/dL (11.7-16.9); LYMPH % 5.7 % (8-40); MCH 25.5 pg (25.7-33.7); MCHC 32.5 g/dl (32.0-35.9); MEAN CELL VOLUME 78.6 fl (80-96); MONO % 2.7 % (3.8-10.2); NEUT % 90.8 % (42.8-82.8); PLATELET COUNT 225 K/MM3 (134-434); RBC 3.35 M/mm3 (4.00-5.60); RDW 13.6 % (11.9-15.9); WHITE BLOOD COUNT 18.8 K/mm3 (4.0-10.0)
[2020-11-12 07:49] LABS: CREATININE 5.7 mg/dL (0.55-1.3)
[2020-11-12 07:50] LABS: ALBUMIN 1.3 g/dl (3.4-5.0); GLUCOSE,RANDOM 214 mg/dL (74-106)
[2020-11-12 07:51] LABS: BILIRUBIN,TOTAL 0.4 mg/dL (0.2-1); TOT PROT 4.9 g/dl (6.4-8.2)
[2020-11-12 07:52] LABS: ALK PHOS 90 U/L (45-117); CALCIUM 7.5 mg/dL (8.5-10.1)
[2020-11-12 07:53] LABS: ANION GAP 19 MMOL/L (8-16); CO2 16 mmol/L (21-32); MAGNESIUM 3.2 mg/dL (1.8-2.4); SGOT/AST 26 U/L (15-37); SGPT/ALT 42 U/L (13-61)
[2020-11-12] MEDS: FAMOTIDINE 20 MG/50 ML IVPB 20 MG/50 ML MG IVPB SCH ×2 (09:49→21:27)
[2020-11-12] MEDS: NYSTATIN POWDER 100,000 UNITS/GM - 15 GM TOPICAL POWDER TP SCH ×2 (09:49→21:26)
[2020-11-12] MEDS: SEVELAMER CARBONATE 2.4 GM POWDER PACKET PO SCH ×3 (09:49→16:58)
[2020-11-12] MEDS: DOXAZOSIN MESYLATE 2 MG TABLET PO SCH (09:49)
[2020-11-12] MEDS: AMINO ACIDS/PROTEIN HYDROLYS 30 ML LIQUID.PKT PO SCH (09:49)
[2020-11-12] MEDS: ATENOLOL 50 MG TABLET (FP) PO SCH (09:50)
[2020-11-12] MEDS ORDERED: PT OWN MED DRAWER 7, Y5N ONE (10:38)
[2020-11-12 11:36] LABS: BLOOD UREA NITROGEN > 150.0 mg/dL (7-18); PHOSPHOROUS > 9.0 mg/dL (2.5-4.9)
[2020-11-12] MEDS ORDERED: SODIUM CHLORIDE 250 ML IV PRN (12:33)
[2020-11-12] MEDS: CHLORHEXIDINE GLUCONATE 4% CLEANSER FOR DECOLONIZATION TP SCH (21:26)
[2020-11-13] MEDS: INSULIN SLIDING SCALE (NOVOLOG) 1 VIAL SQ SCH ×4 (07:02→22:36)
[2020-11-13] MEDS: HEPARIN NA (PORCINE) 5,000 UNITS/ML 1ML VIAL SQ SCH ×3 (07:02→22:36)
[2020-11-13] MEDS: SEVELAMER CARBONATE 2.4 GM POWDER PACKET PO SCH ×3 (09:05→18:19)
[2020-11-13] MEDS: AMINO ACIDS/PROTEIN HYDROLYS 30 ML LIQUID.PKT PO SCH (09:05)
[2020-11-13] MEDS: ATENOLOL 50 MG TABLET (FP) PO SCH (09:05)
[2020-11-13] MEDS: FAMOTIDINE 20 MG/50 ML IVPB 20 MG/50 ML MG IVPB SCH ×2 (09:05→22:37)
[2020-11-13] MEDS ORDERED: PT OWN MED DRAWER 7, Y5N ONE (10:16)
[2020-11-13] MEDS: DOXAZOSIN MESYLATE 2 MG TABLET PO SCH (10:18)
[2020-11-13 12:12] LABS: BASO % 0.2 % (0-2.0); EOS % 0.6 % (0-4.5); HEMATOCRIT 22.1 % (35.4-49); HEMOGLOBIN 7.3 GM/dL (11.7-16.9); LYMPH % 3.5 % (8-40); MCH 25.8 pg (25.7-33.7); MCHC 32.9 g/dl (32.0-35.9); MEAN CELL VOLUME 78.6 fl (80-96); MEAN PLT VOLUME 9.5 fl (7.5-11.1); MONO % 2.6 % (3.8-10.2); NEUT % 93.1 % (42.8-82.8); PLATELET COUNT 174 K/MM3 (134-434); RBC 2.81 M/mm3 (4.00-5.60); RDW 13.9 % (11.9-15.9); WHITE BLOOD COUNT 14.2 K/mm3 (4.0-10.0)
[2020-11-13 12:32] LABS: POTASSIUM 4.9 mmol/L (3.5-5.1)
[2020-11-13 12:33] LABS: CALCIUM 7.1 mg/dL (8.5-10.1)
[2020-11-13 12:34] LABS: ALBUMIN 1.1 g/dl (3.4-5.0)
[2020-11-13 12:37] LABS: CREATININE 5.7 mg/dL (0.55-1.3)
[2020-11-13 12:39] LABS: BILIRUBIN,TOTAL 0.5 mg/dL (0.2-1); TOT PROT 4.5 g/dl (6.4-8.2)
[2020-11-13] MEDS ORDERED: SODIUM CHLORIDE 250 ML IV PRN (12:56)
[2020-11-13] MEDS ORDERED: FUROSEMIDE 40 MG/4 ML INJECTABLE VIAL IVPUSH ONE (12:56)
[2020-11-13 12:58] LABS: BLOOD UREA NITROGEN 172.7 mg/dL (7-18)
[2020-11-13 13:26] LABS: ANISOCYTOSIS 0; MACROCYTOSIS 0; PLATELET ESTIMATE NORMAL
[2020-11-13] MEDS: NYSTATIN POWDER 100,000 UNITS/GM - 15 GM TOPICAL POWDER TP SCH (13:28)
[2020-11-13] MEDS ORDERED: LIDOCAINE HCL 1%, 10 MG/ML (20ML VIAL) ONE (16:25)
[2020-11-13] MEDS ORDERED: hydrALAZINE HCL 20 MG/ML VIAL IVPUSH PRN (17:58)
[2020-11-13] MEDS ORDERED: hydrALAZINE HCL 20 MG/ML VIAL IVPB PRN (18:19)
[2020-11-13 21:29] LABS: PHOSPHOROUS 8.8 mg/dL (2.5-4.9)
[2020-11-14] MEDS: INSULIN SLIDING SCALE (NOVOLOG) 1 VIAL SQ SCH ×4 (06:23→21:23)
[2020-11-14] MEDS: HEPARIN NA (PORCINE) 5,000 UNITS/ML 1ML VIAL SQ SCH ×3 (06:31→21:58)
[2020-11-14 09:55] LABS: BASO % 0.4 % (0-2.0); EOS % 1.2 % (0-4.5); HEMATOCRIT 21.2 % (35.4-49); LYMPH % 3.4 % (8-40); MCH 25.2 pg (25.7-33.7); MEAN CELL VOLUME 78.7 fl (80-96); MEAN PLT VOLUME 10.2 fl (7.5-11.1); MONO % 0.9 % (3.8-10.2); NEUT % 94.1 % (42.8-82.8); PLATELET COUNT 163 K/MM3 (134-434); RDW 14.1 % (11.9-15.9); WHITE BLOOD COUNT 8.6 K/mm3 (4.0-10.0)
[2020-11-14 10:02] LABS: HEMOGLOBIN 6.8 GM/dL (11.7-16.9)
[2020-11-14 10:12] LABS: POTASSIUM 4.8 mmol/L (3.5-5.1)
[2020-11-14 10:14] LABS: CALCIUM 7.4 mg/dL (8.5-10.1)
[2020-11-14 10:18] LABS: PHOSPHOROUS 8.1 mg/dL (2.5-4.9)
[2020-11-14 10:19] LABS: CREATININE 5.9 mg/dL (0.55-1.3)
[2020-11-14 10:20] LABS: TOT PROT 4.3 g/dl (6.4-8.2)
[2020-11-14] MEDS ORDERED: PT OWN MED DRAWER 7, Y5N ONE (10:26)
[2020-11-14] MEDS: AMINO ACIDS/PROTEIN HYDROLYS 30 ML LIQUID.PKT PO SCH (10:30)
[2020-11-14] MEDS: FAMOTIDINE 20 MG/50 ML IVPB 20 MG/50 ML MG IVPB SCH (10:30)
[2020-11-14] MEDS: ATENOLOL 50 MG TABLET (FP) PO SCH (10:30)
[2020-11-14] MEDS: DOXAZOSIN MESYLATE 2 MG TABLET PO SCH (10:30)
[2020-11-14] MEDS: NYSTATIN POWDER 100,000 UNITS/GM - 15 GM TOPICAL POWDER TP SCH ×3 (10:31→21:24)
[2020-11-14] MEDS: SEVELAMER CARBONATE 2.4 GM POWDER PACKET PO SCH ×3 (10:31→17:24)
[2020-11-14 10:38] LABS: BILIRUBIN,TOTAL 0.6 mg/dL (0.2-1)
[2020-11-14 10:55] LABS: BLOOD UREA NITROGEN 174.4 mg/dL (7-18)
[2020-11-14 11:09] LABS: ANISOCYTOSIS 1+; ROULEAU 1+
[2020-11-14 12:05] LABS: RETICULOCYTES 1.07 % (0.5-1.5)
[2020-11-14] MEDS ORDERED: ACETAMINOPHEN 1000 MG/100 ML VIAL (NON FORMULARY) IVPB ONE (15:01)
[2020-11-14] MEDS ORDERED: ACETAMINOPHEN 650 MG/20.3 ML ORAL SOLUTION (CUPS) PO ONE (15:14)
[2020-11-14 16:07] LABS: ATYPICAL pANCA <1:20 titer (Neg:<1:20); C-ANCA <1:20 titer (Neg:<1:20)
[2020-11-14 20:10] LABS: HEP B CORE AB, TOT Negative (Negative)
[2020-11-14] MEDS: FAMOTIDINE 40 MG/5 ML ORAL SUSPENSION NGT SCH (21:58)
[2020-11-15] MEDS ORDERED: ACETAMINOPHEN 325 MG TABLET (FP) PO ONE (02:54)
[2020-11-15] MEDS: INSULIN SLIDING SCALE (NOVOLOG) 1 VIAL SQ SCH ×4 (06:15→22:00)
[2020-11-15] MEDS: HEPARIN NA (PORCINE) 5,000 UNITS/ML 1ML VIAL SQ SCH (06:16)
[2020-11-15 09:48] LABS: ALBUMIN 0.9 g/dl (3.4-5.0)
[2020-11-15 09:50] LABS: BASO % 0.2 % (0-2.0); EOS % 0.2 % (0-4.5); LYMPH % 4.7 % (8-40); MCH 26.3 pg (25.7-33.7); MCHC 33.2 g/dl (32.0-35.9); MEAN CELL VOLUME 79.2 fl (80-96); MONO % 2.2 % (3.8-10.2); NEUT % 92.7 % (42.8-82.8); PLATELET COUNT 135 K/MM3 (134-434); RBC 2.65 M/mm3 (4.00-5.60); RDW 13.5 % (11.9-15.9); WHITE BLOOD COUNT 8.1 K/mm3 (4.0-10.0)
[2020-11-15 09:53] LABS: CREATININE 4.6 mg/dL (0.55-1.3); PHOSPHOROUS 5.4 mg/dL (2.5-4.9)
[2020-11-15 09:54] LABS: BILIRUBIN,TOTAL 0.3 mg/dL (0.2-1); TOT PROT 4.3 g/dl (6.4-8.2)
[2020-11-15 10:01] LABS: MAGNESIUM 2.4 mg/dL (1.8-2.4)
[2020-11-15 10:13] LABS: BLOOD UREA NITROGEN 111.6 mg/dL (7-18)
[2020-11-15] MEDS ORDERED: PT OWN MED DRAWER 7, Y5N ONE (10:23)
[2020-11-15] MEDS: FAMOTIDINE 40 MG/5 ML ORAL SUSPENSION NGT SCH ×2 (10:45→22:00)
[2020-11-15] MEDS: AMINO ACIDS/PROTEIN HYDROLYS 30 ML LIQUID.PKT PO SCH (10:45)
[2020-11-15] MEDS: DOXAZOSIN MESYLATE 2 MG TABLET PO SCH (10:45)
[2020-11-15] MEDS: ATENOLOL 50 MG TABLET (FP) PO SCH (10:45)
[2020-11-15] MEDS: SEVELAMER CARBONATE 2.4 GM POWDER PACKET PO SCH ×3 (10:46→17:27)
[2020-11-15] MEDS: NYSTATIN POWDER 100,000 UNITS/GM - 15 GM TOPICAL POWDER TP SCH ×2 (10:46→22:00)
[2020-11-15 12:32] LABS: ANISOCYTOSIS 0; MACROCYTOSIS 0; PLATELET ESTIMATE DECREASED
[2020-11-15 14:44] LABS: ARTERIAL BLD GAS O2 SATURATION 93.6 mmHg (95-98); ARTERIAL BLOOD GAS BASE EXCESS -0.9 mmol/L (-2-2); ARTERIAL BLOOD GAS PO2 66.1 mmHg (80-100); ARTERIAL BLOOD GAS pH 7.421 (7.350-7.450)
[2020-11-15 14:47] LABS: ALLENS TEST POSITIVE; VENT MODE AC
[2020-11-15 14:48] LABS: VENT RATE 12
[2020-11-15] MEDS ORDERED: FUROSEMIDE 40 MG/4 ML INJECTABLE VIAL IVPB ONE (15:30)
[2020-11-15] MEDS ORDERED: SODIUM CHLORIDE 250 ML IV PRN (15:32)
[2020-11-15 16:17] VITALS: BMI 32.8
[2020-11-15] MEDS ORDERED: FUROSEMIDE 40 MG/4 ML INJECTABLE VIAL IVPUSH ONE (17:45)
[2020-11-15 19:28] LABS: EPI CELLS 4 /uL (0-25.1); HYALINE CASTS 170 /uL (0-3.1); URINE APPEARANCE TURBID; URINE BACTERIA 1143 /uL (0-1359); URINE BILIRUBIN NEGATIVE (NEGATIVE); URINE COLOR RED; URINE GLUCOSE (UA) NEGATIVE (NEGATIVE); URINE KETONE NEGATIVE (NEGATIVE); URINE LEUK ESTERASE 2+ (NEGATIVE); URINE NITRITE NEGATIVE (NEGATIVE); URINE PROTEIN 3+ (NEGATIVE); URINE RBC 1538 /uL (0-23.9); URINE UROBILINOGEN 0.2 mg/dL (0.2-1.0); URINE WBC 992 /uL (0-25.8)
[2020-11-15] MEDS ORDERED: SODIUM CHLORIDE 0.9% 500 ML INFUS.BAG IV ONE (21:19)
[2020-11-15 22:48] LABS: HEMATOCRIT 19.3 % (35.4-49); MCH 26.5 pg (25.7-33.7); MCHC 32.5 g/dl (32.0-35.9); MEAN CELL VOLUME 81.5 fl (80-96); MEAN PLT VOLUME 10.4 fl (7.5-11.1); PLATELET COUNT 107 K/MM3 (134-434); RBC 2.37 M/mm3 (4.00-5.60); RDW 14.1 % (11.9-15.9); WHITE BLOOD COUNT 5.6 K/mm3 (4.0-10.0)
[2020-11-15] MEDS ORDERED: ASPIRIN 300 MG SUPP.RECT RC ONE (22:50)
[2020-11-15 22:55] LABS: HEMOGLOBIN 6.3 GM/dL (11.7-16.9)
[2020-11-15 23:00] LABS: POTASSIUM 4.5 mmol/L (3.5-5.1)
[2020-11-15 23:02] LABS: CALCIUM 7.2 mg/dL (8.5-10.1)
[2020-11-15 23:03] LABS: ALBUMIN 0.9 g/dl (3.4-5.0)
[2020-11-15 23:06] LABS: CREATININE 5.2 mg/dL (0.55-1.3)
[2020-11-15 23:07] LABS: BILIRUBIN,TOTAL 0.5 mg/dL (0.2-1)
[2020-11-15 23:08] LABS: TOT PROT 4.2 g/dl (6.4-8.2)
[2020-11-15 23:14] LABS: BLOOD UREA NITROGEN 119.1 mg/dL (7-18)
[2020-11-16 05:31] VITALS: BP 70/40
[2020-11-16 05:49] VITALS: PULSE 38; TEMP 99.1
[2020-11-16] MEDS ORDERED: ALBUMIN HUMAN 25% 12.5 GM/50 ML VIAL IVPB SCH (15:45)
== END 2020-11-16 | disposition expired | DRG 4 ==
LOC: JER 12:02 → JERBED 16:30 → JICU 19:01 → J5S 11-13 15:50
PROVIDERS: ADMIT Internal Medicine Pulmonary Disease; ATTEND Internal Medicine
PROC: 5A1955Z Respiratory Ventilation, Greater than 96 Consecutive Hours (ICD-10-PCS; 2020-10-25)
PROC: 0BH17EZ Insertion of Endotracheal Airway into Trachea, Via Natural or Artificial Opening (ICD-10-PCS; 2020-10-25)
PROC: 0DH673Z Insertion of Infusion Device into Stomach, Via Natural or Artificial Opening (ICD-10-PCS; 2020-10-25)
PROC: 05HN33Z Insertion of Infusion Device into Left Internal Jugular Vein, Percutaneous Approach (ICD-10-PCS; 2020-11-05)
PROC: B544ZZA Ultrasonography of Left Jugular Veins, Guidance (ICD-10-PCS; 2020-11-05)
PROC: 0B113F4 Bypass Trachea to Cutaneous with Tracheostomy Device, Percutaneous Approach (ICD-10-PCS; principal; 2020-11-11)
PROC: 0BJ08ZZ Inspection of Tracheobronchial Tree, Via Natural or Artificial Opening Endoscopic (ICD-10-PCS; 2020-11-11)
PROC: 5A1D70Z Performance of Urinary Filtration, Intermittent, Less than 6 Hours Per Day (ICD-10-PCS; 2020-11-14)
PROC: 05HM33Z Insertion of Infusion Device into Right Internal Jugular Vein, Percutaneous Approach (ICD-10-PCS; 2020-11-14)
PROC: 5A12012 Performance of Cardiac Output, Single, Manual (ICD-10-PCS; 2020-11-15)
PROC: 30233N1 Transfusion of Nonautologous Red Blood Cells into Peripheral Vein, Percutaneous Approach (ICD-10-PCS; 2020-11-15)
DX: J96.01 Acute respiratory failure with hypoxia (principal); J04.31 Supraglottitis, unspecified, with obstruction; J69.0 Pneumonitis due to inhalation of food and vomit; I21.3 ST elevation (STEMI) myocardial infarction of unspecified site; G92 Toxic encephalopathy; J45.51 Severe persistent asthma with (acute) exacerbation; N17.9 Acute kidney failure, unspecified; N39.0 Urinary tract infection, site not specified; E46 Unspecified protein-calorie malnutrition; E87.0 Hyperosmolality and hypernatremia; T60.91XA Toxic effect of unspecified pesticide, accidental (unintentional), initial encounter; I10 Essential (primary) hypertension; R06.1 Stridor; E11.649 Type 2 diabetes mellitus with hypoglycemia without coma; I46.9 Cardiac arrest, cause unspecified; R57.0 Cardiogenic shock; I95.9 Hypotension, unspecified; R00.1 Bradycardia, unspecified; D50.9 Iron deficiency anemia, unspecified; Z68.32 Body mass index [BMI] 32.0-32.9, adult; D72.829 Elevated white blood cell count, unspecified; R41.82 Altered mental status, unspecified; E87.70 Fluid overload, unspecified; R33.8 Other retention of urine; N40.1 Benign prostatic hyperplasia with lower urinary tract symptoms; R31.0 Gross hematuria; K21.9 Gastro-esophageal reflux disease without esophagitis
CPT/HCPCS: 31500; 36415; 36430; 36511; 36600; 70450-TC; 70491-TC; 71045-TC-FY; 72100-TC-FY; 74018-TC-FY; 76775-TC; 76856-TC; 80048; 80053; 81003; 82248; 82550; 82553; 82607; 82728; 82746; 82803; 82962; 83520; 83540; 83550; 83605; 83615; 83735; 83880; 84100; 84443; 84484; 85025; 85027; 85045; 85379; 85610; 85730; 86038; 86140; 86225; 86256; 86704; 86706; 86707; 86708; 86709; 86769; 86803; 86850; 86900; 86901; 86922; 87040; 87070; 87077; 87086; 87106; 87186; 87205; 87324; 87340; 87449; 87804; 87899; 93005; 93010; 94002; 94640; 99285-25; C9803; J1100; J1644; J3480; P9038; P9058; Q9967; U0003